=== PATIENT | female | born 1965 | race Caucasian/White ===

== ENCOUNTER 2017-03-16 12:44 | Observation (INO) | payer BC ==
[~2017-03-16] VITALS: Ht 172.7 cm; Wt 60.8 kg
[~2017-03-16 12:44] MED LIST: ATOR40TA59 PO; CHOL20009 PO; CITA20TA5 PO; CYAN10005 PO; CYCL-331 PO; ESTR1TAB15 PO; OLAN5TAB9 PO; OMEP40CA5 PO; PNV1TABL25 PO; ROPI0.5T PO; TRAM50TA PO
--- NOTE | 2017-03-16 13:07 | EKG ---
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
[2017-03-16 13:44] LABS: BASO % 1 % (0-3); EOS # 0.1 x10^3/uL (0.0-0.7); EOS % 2 % (0-3); HEMATOCRIT 38.2 % (36.0-47.0); HEMOGLOBIN 12.9 g/dL (12.0-15.5); LYMPH # 1.4 x10^3/uL (1.0-4.8); LYMPH % 35 % (24-48); MEAN CORPUSCULAR HEMOGLOBIN 32 pg (25-35); MEAN CORPUSCULAR HGB CONC 34 g/dL (31-37); MEAN CORPUSCULAR VOLUME 94 fL (79-100); MONO # 0.2 x10^3/uL (0.0-1.1); MONO % 6 % (0-9); NEUT # 2.1 x10^3uL (1.8-7.7); NEUT % 56 % (31-73); PLATELET COUNT 251 x10^3/uL (140-400); RED BLOOD COUNT 4.08 x10^6/uL (3.50-5.40); RED CELL DISTRIBUTION WIDTH 13.3 % (11.5-14.5); WHITE BLOOD COUNT 3.8 x10^3/uL (4.0-11.0)
--- NOTE | 2017-03-16 13:45 | RAD ---
Portable AP upright view CXR: Clinical indications: Chest pain and shortness of air. Comparison: November 11, 2015. Findings: No acute lung infiltrate or pleural effusion or pulmonary edema or lung mass or pneumothorax is seen. The heart size, pulmonary vasculature, mediastinum and both gris are unremarkable. Impression: No acute radiographic abnormality is seen.
[2017-03-16 14:06] LABS: ALBUMIN 3.4 g/dL (3.4-5.0); CALCIUM 9.1 mg/dL (8.5-10.1); CREATININE 1.2 mg/dL (0.6-1.0); GFR 47.4; MAGNESIUM 1.6 mg/dL (1.8-2.4); TOTAL BILIRUBIN 0.3 mg/dL (0.2-1.0); TOTAL PROTEIN 6.7 g/dL (6.4-8.2)
--- NOTE | 2017-03-16 14:41 | PHYS DOC ---
Past History Past Medical History: Asthma Past Surgical History: Cholecystectomy, Gastric Bypass, Hysterectomy Smoking: Non-smoker Alcohol Use: None Drug Use: None Adult General Chief Complaint Chief Complaint: CHEST PAIN HPI HPI Patient is a 51-year-old female who presents with the complaint of dull left- sided chest pain and "I can't catch my breath" for about 30 minutes prior to arrival. Patient states days ago, on Wednesday, her heart was racing. It went away after a while by itself. At that time she did not really have chest discomfort that she was a bit short of air. She has been having some of these symptoms off and on for 2 months. 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 I believe the dull left-sided chest pain was well was a little different and really prompted her to come in. The patient denies diaphoresis, vomiting, but she is short of air with the symptoms. She has a history of asthma and uses her inhaler. Also has a history of WPW. The patient has been seen by Dr Antonio, cardiology. She has not had a heart catheter. She denies history of CA. She was hospitalized she believes about 9 years ago and then was seen again about 2 years ago for chest pain or heart related complaints, both times she checked out and was not found to have heart related problems. Patient has never smoked. She denies hypertension and diabetes. She does take a statin and believe she has high blood cholesterol. Meds include meloxicam, levothyroxine, she does not take aspirin or antiplatelet therapy. Review of Systems Review of Systems Constitutional: Denies fever or chills [] Eyes: Denies change in visual acuity, redness, or eye pain [] HENT: Denies nasal congestion or sore throat [] Respiratory: As in history of present illness Cardiovascular: As in history of present illness GI: Denies abdominal pain, nausea, vomiting, bloody stools or diarrhea [] : Denies dysuria or hematuria [] Musculoskeletal: Denies back pain or joint pain [] Integument: Denies rash or skin lesions [] Neurologic: Denies headache, focal weakness or sensory changes [] Allergies Allergies Allergies Coded Allergies Type Severity Reaction Last Updated Verified duloxetine Allergy Intermediate 11/11/15 Yes rosuvastatin Allergy Intermediate rash 11/11/15 No pramipexole Allergy Mild NAUSEA AND VOMITING 11/11/15 Yes Physical Exam Physical Exam Constitutional: Well developed, well nourished, no acute distress, non-toxic appearance. Alert, mentating normally, no acute distress, nondiaphoretic. HENT: Normocephalic, atraumatic, bilateral external ears normal, nose normal. [] Eyes: conjunctiva normal, no discharge. [] Neck: Normal range of motion, no stridor. [] Cardiovascular:Heart rate regular rhythm, no murmur [] Lungs & Thorax: Bilateral breath sounds clear to auscultation , no wheezes Abdomen: Bowel sounds normal, soft, no tenderness, no masses, no pulsatile masses. [] Skin: Warm, dry, no erythema, no rash. [] Extremities: No tenderness, no cyanosis, no clubbing, ROM intact, no edema. [] Neurologic: Alert and oriented X 3, normal motor function, normal sensory function, no focal deficits noted. [] Current Patient Data Vital Signs Vital Signs Date Time Temp Pulse Resp B/P (MAP) Pulse Ox O2 Delivery O2 Flow Rate FiO2 03/16/17 13:03 98.7 88 22 99 Lab Results Laboratory Tests Test 03/16/17 13:33 White Blood Count 3.8 x10^3/uL (4.0-11.0) L Red Blood Count 4.08 x10^6/uL (3.50-5.40) Hemoglobin 12.9 g/dL (12.0-15.5) Hematocrit 38.2 % (36.0-47.0) Mean Corpuscular Volume 94 fL (79-100) Mean Corpuscular Hemoglobin 32 pg (25-35) Mean Corpuscular Hemoglobin Concent 34 g/dL (31-37) Red Cell Distribution Width 13.3 % (11.5-14.5) Platelet Count 251 x10^3/uL (140-400) Neutrophils (%) (Auto) 56 % (31-73) Lymphocytes (%) (Auto) 35 % (24-48) Monocytes (%) (Auto) 6 % (0-9) Eosinophils (%) (Auto) 2 % (0-3) Basophils (%) (Auto) 1 % (0-3) Neutrophils # (Auto) 2.1 x10^3uL (1.8-7.7) Lymphocytes # (Auto) 1.4 x10^3/uL (1.0-4.8) Monocytes # (Auto) 0.2 x10^3/uL (0.0-1.1) Eosinophils # (Auto) 0.1 x10^3/uL (0.0-0.7) Basophils # (Auto) 0.0 x10^3/uL (0.0-0.2) Sodium Level 141 mmol/L (136-145) Potassium Level 4.0 mmol/L (3.5-5.1) Chloride Level 105 mmol/L (98-107) Carbon Dioxide Level 30 mmol/L (21-32) Anion Gap 6 (6-14) Blood Urea Nitrogen 20 mg/dL (7-20) Creatinine 1.2 mg/dL (0.6-1.0) H Estimated GFR (Cockcroft-Gault) 47.4 BUN/Creatinine Ratio 17 (6-20) Glucose Level 93 mg/dL (70-99) Calcium Level 9.1 mg/dL (8.5-10.1) Magnesium Level 1.6 mg/dL (1.8-2.4) L Total Bilirubin 0.3 mg/dL (0.2-1.0) Aspartate Amino Transferase (AST) 13 U/L (15-37) L Alanine Aminotransferase (ALT) 16 U/L (14-59) Alkaline Phosphatase 66 U/L (46-116) Creatine Kinase 95 U/L (26-192) Creatine Kinase MB (Mass) 0.6 ng/mL (0.0-3.6) Creatine Kinase MB Relative Index 0.6 % (0-4) Troponin I Quantitative < 0.017 ng/mL (0-0.055) [id number]-Type Natriuretic Peptide 137 pg/mL (0-124) H Total Protein 6.7 g/dL (6.4-8.2) Albumin 3.4 g/dL (3.4-5.0) Albumin/Globulin Ratio 1.0 (1.0-1.7) EKG EKG 12-lead EKG read by me. Sinus rhythm. Heart rate 73. There are no acute ST or T wave changes indicative of ischemia or infarction. No STEMI. [] Radiology/Procedures Radiology/Procedures One view portable chest x-ray read by me. Heart size normal. Lung leonardo are clear. Normal chest x-ray. [] Course & Med Decision Making Course & Med Decision Making Pertinent Labs and Imaging studies reviewed. (See chart for details) 51-year-old female presents with some dull left-sided chest pain and shortness of air, she has had similar symptoms off and on for maybe about 2 months. Patient does have a history of elevated cholesterol as her only cardiac risk factor. Cardiac enzymes and EKG negative in the ED. Evaluation in the ED was unrevealing for other possible causes of her symptoms. She does have a history of asthma but she is not wheezing and I don't believe her asthma is causing her symptoms today. With her history of elevated cholesterol I do believe she needs to be ruled out and may need some further testing such as nuclear stress or nuclear echo. I discussed this with the patient who is agreeable. I discussed the case with Dr. Castillo, who will admit the patient. I wrote bridge orders. [] Dragon Disclaimer Dragon Disclaimer This chart was dictated in whole or in part using Voice Recognition software in a busy, high-work load, and often noisy Emergency Department environment. It may contain unintended and wholly unrecognized errors or omissions. Departure Departure: Impression: Primary Impression: Chest pain of uncertain etiology Disposition: ADMITTED INPATIENT Admitting Physician: Susie Castillo Condition: STABLE Referrals: LISETTE BEARDEN (PCP) TIFFANY VELAZQUEZ MD Mar 16, 2017 14:41
[2017-03-16] MEDS ORDERED: ASPIRIN 81 MG TAB.CHEW PO ONE (15:10)
[2017-03-16 15:48] VITALS: BP 137/89
--- NOTE | 2017-03-16 15:55 | ACF ---
Admission Criteria Forms CARDIOLOGY [facility] Clinical Indications for Admission to Inpatient Care ( Place 'X' for any and all applicable criteria): Hospital admission is needed for appropriate care of the patient because of ANY ONE of the following (1): [ ] I. Hemodynamic instability as indicated by ALL of the following (1)(2)(3) (4)(5) [ ]a) Vital signs or other findings not as expected for chronic patient condition or baseline [ ]b) Instability indicated by ANY ONE of the following: [ ]i) Hypotension [ ]ii) Symptomatic Tachycardia unresponsive to treatment ( e.g., analgesia, fluids, sedation as indicated) [ ]iii) Inadequate perfusion indicated by ANY ONE of the following: [ ] 1) Lactic acidosis (> 2 mmol/L) [ ] 2) New abnormal capillary refill (> 3 seconds) [ ] 3) Reduced urine output [ ] 4) New altered mental status [ ]iv) Orthostatic vital sign changes unresponsive to treatment (e.g., fluids) [ ]v) IV inotropic or vasopressor medication required to maintain adequate blood pressure or perfusion [ ] II. Severe heart failure as indicated by ANY ONE of the following(17)(18) [ ]a) Respiratory distress [ ]b) Hypotension [ ]c) Anasarca (refractory to outpatient therapy) [ ]d) Cardiac arrhythmias of immediate concern [ ]e) Myocardial ischemia [ ] III. Cardiac arrhythmias or findings of immediate concern indicated by ANY ONE of the following (19)(20): [ ] a) Heart rhythms that are inherently dangerous or unstable indicated by ANY ONE of the following (21)(22)(23): [ ] i) Resuscitated ventricular fibrillation or cardiac arrest [ ] ii) Ventricular escape rhythm [ ] iii) Sustained ventricular tachycardia (30 seconds or more of ventricular rhythm at greater than 100 beats per minute) [ ] iv) Nonsustained ventricular tachycardia and ANY ONE of the following: [ ] 1) Suspected cardiac ischemia as cause or consequence of ventricular tachycardia [ ] 2) In setting of acute myocarditis [ ] b) Unstable cardiac conduction defects indicated by ANY ONE of the following(23)(24)(25) [ ] i) Type II second-degree atrioventricular block [ ]ii) Third-degree atrioventricular block [ ]iii) New-onset left bundle branch block with suspected myocardial ischemia [ ]c) Any heart rhythm and ANY ONE of the following (21)(22)(26)(27) (28) [ ] i) Continuous long-term ECG monitoring needed (e.g., initiation of drug requiring monitoring for more than 24 hours) [ ] ii) Patient has automatic implanted cardioverter defibrillator that is repeatedly firing, malfunctioning, or in need of immediate adjustment of settings beyond the scope of ambulatory or observation care [ ]d) Heart rhythms of concern due to ANY ONE of the following: [ ] i) Hypotension [ ] ii) Respiratory distress [ ] iii) Association with other significant symptoms (e.g., bradycardia with syncope or ongoing dizziness, supraventricular tachycardia with chest pain (14)(15)(17) [ ] IV. Monitoring for cardiac contusion beyond the scope of observation care needed [A](30)(31)(32) [ ] V. Surgical or device complication (e.g., valve replacement complication , pacemaker dysfunction) (35)(41)(44)(45)(46) [ ] . Inpatient palliative care needed. [B](49) Also use Inpatient Palliative Care Criteria [ ] VII. Nonbacterial thrombotic (marantic) endocarditis (36)(43)(47)(48) [X ] VIII. Cardiology condition, symptom, or finding for which emergency and observation care has failed or are not considered appropriate. [ ] IX. Acute valvular disease requiring inpatient as indicated by ANY ONE of the following (41) [ ]a) Acute valvular regurgitation (42) [ ]b) Noninfectious valvulitis (43) [ ]c) Obstructive valve thrombosis [ ]d) Paravalvular leak [ ]e) Other significant valvular disorder remaining after emergency or observation level of care (as appropriate) [ ]X. Pericardial disease requiring inpatient treatment as indicated by ANY ONE of the following (33)(34)(35)(36)(37) [ ]a) Suspected tamponade (38)(39)(40) [ ]b) Hemopericardium [ ]c) Other significant pericardial disorder remaining after emergency or observation level of care (as appropriate) [ ] XI. Cardiac ischemia beyond scope of emergency and observation care. [ ] XII. Hypertension requiring inpatient treatment as indicated by ANY ONE of the following (6)(7)(8) [ ]a) SBP greater than 220 mm Hg or DBP greater than 120 mmHg despite treatment [ ]b) SBP greater than 140 mm Hg or DBP greater than 100 mm Hg with evidence of acute end organ damage as indicated by ANY ONE of the following [ ] i) Encephalopathy [ ] ii) Acute renal failure as indicated by new onset of ANY ONE of the following (9)(10)(11)(12)(13) [ ]1) 3-fold rise in serum creatinine from baseline [ ]2) Serum creatinine greater than 4 mg/dL ( 354 micromoles/L) with acute rise greater than 0.5 mg/dL (44.2 micromoles/L) [ ]3) Reduction of more than 75% in estimated glomerular filtration rate from baseline [ ]4) Estimated glomerular filtration rate less than 35 mL/min/1.73m2 (0.59 mL/sec/1.73m2) in child up to 18 years of age [ ]5) Cessation of urine output indicated by ALL of the following [ ]A. Adequate volume status [ ]B. Inadequate urine output as indicated by ANY ONE of the following [ ]a. Urine output less than 0.3 mL/kg/hr for 24 hours [ ]b. Anuria (urine output less than 0.1 mL/kg/hr) for 12 hours [ ] iii) Aortic dissection [ ] iv) Myocardial Ischemia [ ] v) Left ventricular heart failure [ ]vi) Retinal Hemorrhage [ ]vii) Other significant finding [ ]c) Hypertension in child requiring inpatient treatment as indicated by ALL of the following(14)(15)(16) [ ] i) Outpatient treatment not effective, not available, or not appropriate [ ]ii) SBP or DBP greater than 95th percentile for age [ ]iii) Evidence of acute end organ damage as indicated by ANY ONE of the following [ ]1) Altered mental status [ ]2) Acute renal failure as indicated by new onset of ANY ONE of the following(9)(10)(11)(12)(13) [ ]A. 3-fold rise in serum creatinine from baseline [ ]B. Serum creatinine greater than 4 mg/dL (354 micromoles/L) with acute rise greater than 0.5 mg/dL (44.2 micromoles/L) [ ]C. Reduction of more than 75% in estimated glomerular filtration rate from baseline [ ]D. Estimated glomerular filtration rate less than 35 mL/min/1.73m2 (0.59 mL/sec/1.73m2) in child up to 18 years of age [ ]E. Cessation of urine output indicated by ALL of the following [ ]a. Adequate volume status [ ]b. Inadequate urine output as indicated by ANY ONE of the following [ ]i) Urine output less than 0.3 mL/kg/hr for 24 hours [ ]ii) Anuria ( urine output less than 0.1 mL/kg/hr) for 12 hours [ ]3) Severe headache [ ]4) Visual disturbance [ ]5) Retinal hemorrhage [ ]6) Other significant finding [ ]XIII. Complications of transplanted heart indicated by ANY ONE of the following(61): [ ]a) Acute graft rejection requiring inpatient management (eg, intravenous immunosuppression)(62)(63) [ ]b) Acute graft heart failure indicated by ANY ONE of the following(64): [ ]i) Hemodynamic instability [ ]ii) Cardiac arrhythmias of immediate concern [ ]iii) Pulmonary edema that is very severe (eg, mechanical ventilation needed, imminent or likely, need for 100% oxygen to keep oxygen saturation above 90%) [ ]iv) Pulmonary edema that is persistent as indicated by ALL of the following: [ ]1) New need for oxygen therapy to keep oxygen saturation above 90% (or increased FiO2 need from baseline) [ ]2) Has not improved sufficiently with emergency department or observation care IV diuretics or other heart failure treatments[E] [ ]v) Altered mental status that is severe or persistent [ ]vi) Increased creatinine (new on laboratory test) with reduction of more than 50% in estimated glomerular filtration rate from baseline [ ]vii) Progressively (ongoing) rising creatinine (known from past laboratory test) with reduction of more than 25% in estimated glomerular filtration rate from baseline [ ]viii) Acute renal failure [ ]ix) Acute peripheral ischemia (eg, examination shows pulseless, cool, mottled, or cyanotic extremity) [ ]x) Pulmonary artery catheter monitoring needed [ ]xi) Other sign or symptom of heart failure requiring inpatient treatment (ie, too severe or not responsive to outpatient and observation care treatment) [ ]c) Infection requiring inpatient management (eg, Hemodynamic instability, need for intravenous antimicrobial treatment)(66)(67)(68)(69)(70) [ ]d) Cardiac allograft vasculopathy requiring inpatient management ( eg evidence of cardiac ischemia)(71) [ ]e) Other complication of transplanted heart (eg, stroke, severe pulmonary hypertension, severe valvular dysfunction) requiring inpatient management(72) The original [facility] content created by [facility] has been revised. The portions of the content which have been revised are identified through the use of italic text or in bold, and [facility] has neither reviewed nor approved the modified material. All other unmodified content is copyright [facility]. Please see references footnoted in the original [facility] edition 2016 Admission Criteria Met?: Yes FALLON HITCHCOCK Mar 16, 2017 15:55
[2017-03-16] MEDS ORDERED: ACETAMINOPHEN 500 MG TABLET PO PRN (16:00)
[2017-03-16] MEDS ORDERED: LEVO75TA5 PO (16:14)
[2017-03-16] MEDS ORDERED: ATORVASTATIN CA80 MG PO (16:14)
[2017-03-16] MEDS ORDERED: CETI10TA16 PO (16:14)
[2017-03-16] MEDS ORDERED: MELO15TA23 PO (16:14)
[2017-03-16 18:40] VITALS: BP 129/50
[2017-03-16] MEDS ORDERED: CYCLOBENZAPRINE 10 MG TABLET. PO PRN (19:30)
[2017-03-16] MEDS ORDERED: traMADol 50 MG TABLET PO PRN (19:30)
[2017-03-16] MEDS ORDERED: CETIRIZINE HCL 10 MG TABLET PO SCH (21:00)
[2017-03-16] MEDS ORDERED: ATORVASTATIN CALCIUM 20 MG TABLET PO SCH (21:00)
[2017-03-16 22:40] VITALS: BP 117/72
[2017-03-17 02:03] LABS: BASO % 1 % (0-3); EOS # 0.1 x10^3/uL (0.0-0.7); EOS % 2 % (0-3); HEMATOCRIT 34.8 % (36.0-47.0); HEMOGLOBIN 11.8 g/dL (12.0-15.5); LYMPH # 1.8 x10^3/uL (1.0-4.8); LYMPH % 41 % (24-48); MEAN CORPUSCULAR HEMOGLOBIN 32 pg (25-35); MEAN CORPUSCULAR HGB CONC 34 g/dL (31-37); MEAN CORPUSCULAR VOLUME 94 fL (79-100); MONO # 0.3 x10^3/uL (0.0-1.1); MONO % 7 % (0-9); NEUT # 2.2 x10^3uL (1.8-7.7); NEUT % 50 % (31-73); PLATELET COUNT 225 x10^3/uL (140-400); RED BLOOD COUNT 3.68 x10^6/uL (3.50-5.40); RED CELL DISTRIBUTION WIDTH 13.8 % (11.5-14.5); WHITE BLOOD COUNT 4.5 x10^3/uL (4.0-11.0)
[2017-03-17 02:23] LABS: CALCIUM 8.5 mg/dL (8.5-10.1); CREATININE 1.3 mg/dL (0.6-1.0); GFR 43.2; MAGNESIUM 1.7 mg/dL (1.8-2.4); POTASSIUM 3.4 mmol/L (3.5-5.1); TOTAL BILIRUBIN 0.2 mg/dL (0.2-1.0); TOTAL PROTEIN 6.1 g/dL (6.4-8.2)
[2017-03-17 05:45] VITALS: BP 108/65
[2017-03-17] MEDS ORDERED: LEVOTHYROXINE 75 MCG TABLET PO SCH (06:00)
[2017-03-17] MEDS ORDERED: POTASSIUM CHLORIDE 20 MEQ TABLET.ER. PO ONE (08:00)
[2017-03-17] MEDS ORDERED: ASPIRIN ENTERIC COATED 81 MG TABLET.DR. PO SCH (08:00)
[2017-03-17] MEDS ORDERED: PANTOPRAZOLE 40 MG TABLET. PO SCH (09:00)
[2017-03-17] MEDS ORDERED: MAGNESIUM OXIDE 400 MG TABLET PO SCH (09:00)
[2017-03-17 11:13] VITALS: BP 100/62
[2017-03-17 14:34] VITALS: BP 121/69
--- NOTE | 2017-03-17 15:20 | PDOC1 ---
History of Present Illness History of Present Illness This is a 50-year-old female who reported having some troubles breathing and catching her breath and some tightness in her chest this is ongoing for a couple of days. Nonradiating. Denies diaphoresis. Chief Complaint: CHEST PAIN Allergies: Coded Allergies: duloxetine (Verified Allergy, Intermediate, 11/11/15) rosuvastatin (Unverified Allergy, Intermediate, rash, 11/11/15) pramipexole (Verified Allergy, Mild, NAUSEA AND VOMITING, 11/11/15) Past Medical History Cardiac: hyperipidemia, Other (WPW) Pulmonary: Asthma Renal/: Other (PCKD) Past Surgical History: Tonsillectomy, Other Family History: CAD Past Social History Smoke: No Drugs: None Lives: with Family Review of Systems Review Of Systems Fourteen system , review of systems has been reviewed. See HPI for pertinent positives and negative responses, other abdalla all other systems are negative, non pertinent or non contributory Cardiovascular: yes: Chest Pain Neurological: YES: Headaches (since having her teeth pulled) Allergies: Coded Allergies: duloxetine (Verified Allergy, Intermediate, 11/11/15) rosuvastatin (Unverified Allergy, Intermediate, rash, 11/11/15) pramipexole (Verified Allergy, Mild, NAUSEA AND VOMITING, 11/11/15) Medications Current Medications Aspirin (Children'S Aspirin) 324 mg 1X ONCE PO Last administered on 03/16/17 15:10; Start 03/16/17 at 15:10; Stop 03/16/17 at 15:11; Status DC Acetaminophen (Tylenol) 500 mg PRN Q6HRS PRN PO PAIN / TEMP; Start 03/16/17 at 16:00 Aspirin (Aspirin Enteric Coated) 81 mg DAILYWBKFT PO Last administered on 08:17; Start 03/17/17 at 08:00 Cetirizine HCl (ZyrTEC) 10 mg HS PO Last administered on 03/16/17 20:30; Start 03/16/17 at 21:00 Cyclobenzaprine HCl (Flexeril) 10 mg PRN QHS PRN PO MUSCLE SPASMS Last administered on 03/16/17 20:31; Start 03/16/17 at 19:30 Levothyroxine Sodium (Synthroid) 37.5 mcg DAILY06 PO Last administered on 06:09; Start 03/17/17 at 06:00 Tramadol HCl (Ultram) 50 mg PRN Q6HRS PRN PO PAIN; Start 03/16/17 at 19:30 Atorvastatin Calcium (Lipitor) 80 mg QHS PO Last administered on 03/16/17 20: 31; Start 03/16/17 at 21:00 Pantoprazole Sodium (Protonix) 40 mg DAILY PO Last administered on 03/17/17 08 :17; Start 03/17/17 at 09:00 Magnesium Oxide (Magnesium Oxide) 400 mg DAILY PO Last administered on 08:17; Start 03/17/17 at 09:00 Potassium Chloride (Klor-Con) 40 meq 1X ONCE PO Last administered on 08:17; Start 03/17/17 at 08:00; Stop 03/17/17 at 08:01; Status DC Active Scripts Active Reported Cetirizine Hcl 10 Mg Tablet 10 Mg PO HS LAST DOSE GIVEN: DATE: TIME: NEXT DOSE DUE: DATE: TIME: Meloxicam 15 Mg Tablet 15 Mg PO HS LAST DOSE GIVEN: DATE: TIME: NEXT DOSE DUE: DATE: TIME: Levothyroxine Sodium 75 Mcg Tablet 0.5 Tab PO DAILY06 Atorvastatin Calcium 80 Mg Tablet 1 Tab PO HS LAST DOSE GIVEN: DATE: TIME: NEXT DOSE DUE: DATE: TIME: Tramadol Hcl (Tramadol HCl) 50 Mg Tablet 1 Tab PO PRN Q6HRS LAST DOSE GIVEN: DATE: TIME: NEXT DOSE DUE: DATE: TODAY TIME: WHEN NEEDED Cyclobenzaprine Hcl 10 Mg Tablet 1 Tab PO HS PRN LAST DOSE GIVEN: DATE: TIME: NEXT DOSE DUE: DATE: TODAY TIME: WHEN NEEDED Omeprazole 40 Mg Capsule. 1 Cap PO DAILY LAST DOSE GIVEN: DATE: TODAY TIME: AM NEXT DOSE DUE: DATE: TOMORROW TIME: AM Exam Vital Signs Vital Signs Date Time Temp Pulse Resp B/P (MAP) Pulse Ox O2 Delivery O2 Flow Rate FiO2 03/17/17 14:34 97.6 64 20 121/69 (86) 95 03/17/17 12:11 Room Air HEENT: Other (poor dentition, several teeth missing, others decayed, no evidence of infection) Heart: Regular rate Abdominal: Normal bowel sounds, Soft, No tenderness, No masses Extremities: No clubbing, No cyanosis, No edema Skin: No rashes, No breakdown, No significant lesion Neuro: Normal gait, Normal speech, Normal tone, Sensation intact, Reflexes 2+ Psych/Mental Status: Mental status NL, Mood NL Assessment/Plan Assessment/Plan #1 chest painfirst troponin negative admitted for rule out [facility] 2 LVPW appears stable #3 recent teeth extraction For headache from teeth extraction will prescribe Tylenol she needs it 5 polycystic kidney disease with minimally elevated creatinine COURSE reviewed Allergies Coded Allergies Type Severity Reaction Last Updated Verified duloxetine Allergy Intermediate 11/11/15 Yes rosuvastatin Allergy Intermediate rash 11/11/15 No pramipexole Allergy Mild NAUSEA AND VOMITING 11/11/15 Yes Laboratory Tests Test 03/16/17 19:45 03/17/17 01:45 Troponin I Quantitative < 0.017 ng/mL (0-0.055) < 0.017 ng/mL (0-0.055) White Blood Count 4.5 x10^3/uL (4.0-11.0) Red Blood Count 3.68 x10^6/uL (3.50-5.40) Hemoglobin 11.8 g/dL (12.0-15.5) Hematocrit 34.8 % (36.0-47.0) Mean Corpuscular Volume 94 fL (79-100) Mean Corpuscular Hemoglobin 32 pg (25-35) Mean Corpuscular Hemoglobin Concent 34 g/dL (31-37) Red Cell Distribution Width 13.8 % (11.5-14.5) Platelet Count 225 x10^3/uL (140-400) Neutrophils (%) (Auto) 50 % (31-73) Lymphocytes (%) (Auto) 41 % (24-48) Monocytes (%) (Auto) 7 % (0-9) Eosinophils (%) (Auto) 2 % (0-3) Basophils (%) (Auto) 1 % (0-3) Neutrophils # (Auto) 2.2 x10^3uL (1.8-7.7) Lymphocytes # (Auto) 1.8 x10^3/uL (1.0-4.8) Monocytes # (Auto) 0.3 x10^3/uL (0.0-1.1) Eosinophils # (Auto) 0.1 x10^3/uL (0.0-0.7) Basophils # (Auto) 0.0 x10^3/uL (0.0-0.2) Sodium Level 141 mmol/L (136-145) Potassium Level 3.4 mmol/L (3.5-5.1) Chloride Level 104 mmol/L (98-107) Carbon Dioxide Level 30 mmol/L (21-32) Anion Gap 7 (6-14) Blood Urea Nitrogen 23 mg/dL (7-20) Creatinine 1.3 mg/dL (0.6-1.0) Estimated GFR (Cockcroft-Gault) 43.2 BUN/Creatinine Ratio 18 (6-20) Glucose Level 131 mg/dL (70-99) Calcium Level 8.5 mg/dL (8.5-10.1) Magnesium Level 1.7 mg/dL (1.8-2.4) Total Bilirubin 0.2 mg/dL (0.2-1.0) Aspartate Amino Transf (AST/SGOT) 12 U/L (15-37) Alanine Aminotransferase (ALT/SGPT) 15 U/L (14-59) Alkaline Phosphatase 62 U/L (46-116) Total Protein 6.1 g/dL (6.4-8.2) Albumin 3.0 g/dL (3.4-5.0) Albumin/Globulin Ratio 1.0 (1.0-1.7) Current Medications Medications (Trade) Dose Ordered Sig/Hermes Route PRN Reason Start Time Stop Time Status Last Admin Dose Admin Acetaminophen (Tylenol) 500 mg PRN Q6HRS PRN PO PAIN / TEMP 03/16/17 16:00 Aspirin (Aspirin Enteric Coated) 81 mg DAILYWBKFT PO 03/17/17 08:00 03/17/17 08:17 Cetirizine HCl (ZyrTEC) 10 mg HS PO 03/16/17 21:00 03/16/17 20:30 Cyclobenzaprine HCl (Flexeril) 10 mg PRN QHS PRN PO MUSCLE SPASMS 03/16/17 19:30 03/16/17 20:31 Levothyroxine Sodium (Synthroid) 37.5 mcg DAILY06 PO 03/17/17 06:00 03/17/17 06:09 Tramadol HCl (Ultram) 50 mg PRN Q6HRS PRN PO PAIN 03/16/17 19:30 Atorvastatin Calcium (Lipitor) 80 mg QHS PO 03/16/17 21:00 03/16/17 20:31 Pantoprazole Sodium (Protonix) 40 mg DAILY PO 03/17/17 09:00 03/17/17 08:17 Magnesium Oxide (Magnesium Oxide) 400 mg DAILY PO 03/17/17 09:00 03/17/17 08:17 Potassium Chloride (Klor-Con) 40 meq 1X ONCE PO 03/17/17 08:00 03/17/17 08:01 DC 03/17/17 08:17 I & O 03/17/17 00:00 Intake Total 920 ml Balance 920 ml Orders Procedure Category Date Status Time Acetaminophen PHA 03/16/17 In Process (Tylenol) 16:00 Aspirin Enteric PHA 03/17/17 In Process Coated (Aspirin 08:00 Lipid Panel LAB 03/16/17 Complete 15:53 Admit Orders ADT 03/16/17 Transmitted Consult Physician By CONS 03/16/17 Transmitted Name 15:54 Cbc W [employer] LAB 03/17/17 Complete 05:00 Comprehensive LAB 03/17/17 Complete Metabolic Panel 05:00 Magnesium LAB 03/17/17 Complete 05:00 Cetirizine Hcl PHA 03/16/17 In Process (Zyrtec) 21:00 Cyclobenzaprine PHA 03/16/17 In Process (Flexeril) 19:30 Levothyroxine PHA 03/17/17 In Process (Synthroid) 06:00 Tramadol (Ultram) PHA 03/16/17 In Process 19:30 Atorvastatin Calcium PHA 03/16/17 In Process (Lipitor) 21:00 Pantoprazole PHA 03/17/17 In Process (Protonix) 09:00 Magnesium Oxide PHA 03/17/17 In Process (Magnesium Oxide) 09:00 Potassium Chloride PHA 03/17/17 Complete (Klor-Con) 08:00 Echocardiogram ECHO 03/17/17 Logged 15:53 Vital Signs Date Time Temp Pulse Resp B/P (MAP) Pulse Ox O2 Delivery O2 Flow Rate FiO2 03/17/17 14:34 97.6 64 20 121/69 (86) 95 03/17/17 12:11 Room Air VIPUL VENTURA DO Mar 17, 2017 15:20
--- NOTE | 2017-03-17 15:43 | CARD ---
APPROVED REPORT EXAM: Two-dimensional and M-mode echocardiogram with Doppler and color Doppler. Other Information Quality : Average Rhythm : NSR INDICATION Chest Pain 2D DIMENSIONS RVDd2.6 (2.9-3.5cm)Left Atrium(2D)3.1 (1.6-4.0cm) IVSd0.9 (0.7-1.1cm)Aortic Root(2D)2.8 (2.0-3.7cm) LVDd4.3 (3.9-5.9cm)LVOT Diameter2.0 (1.8-2.4cm) PWd0.9 (0.7-1.1cm)LVDs2.8 (2.5-4.0cm) FS (%) 35.4 %SV53.2 ml LVEF(%)65.1 (>50%) Aortic Valve AoV Peak Donnie.123.0cm/sAoV VTI25.0cm AO Peak GR.6.1mmHgLVOT Peak Donnie.93.7cm/s LVOT VTI 19.78cmAO Mean GR.4mmHg ANDRE (VMAX)2.55ka8SLL (VTI)2.41cm2 Mitral Valve MV E Lxeardca08.6cm/sMV DECEL [id number] MV A Tthzljcx16.2cm/sMV FZW55aq E/A Ratio0.8MV A Fuqoxqlw019bk MVA (PHT)3.06cm2 Tricuspid Valve TR P. Tdnkphnu729vh/sRAP NWCJYROJ5wtQy TR Peak Gr.77zzHdWCUH91ngQj Pulmonary Vein S1 Magdsfcl06.2cm/sD2 Qmbdikki47.2cm/s LEFT VENTRICLE The left ventricle is normal size. There is normal left ventricular wall thickness. Left ventricle sy stolic function is normal. The Ejection Fraction is 60-65%. There is normal LV segmental wall motion. The left ventricular diastolic function and filling is normal for age. There is no ventricular septa l defect visualized. RIGHT VENTRICLE The right ventricle is normal size. The right ventricular systolic function is normal. ATRIA The left atrium size is normal. The right atrium size is normal. The interatrial septum is intact wit h no evidence for an atrial septal defect or patent foramen ovale as noted on 2-D or Doppler imaging. AORTIC VALVE The aortic valve is normal in structure and function. The aortic valve is trileaflet. Doppler and Col or Flow revealed no significant aortic regurgitation. There is no significant aortic valvular stenosi s. MITRAL VALVE The mitral valve is normal in structure and function. There is no mitral valve stenosis. Doppler and Color Flow revealed trace to mild mitral regurgitation. TRICUSPID VALVE The tricuspid valve is normal in structure and function. Doppler and Color Flow revealed trace tricus pid regurgitation. The PA pressure was estimated at 26 mmHg. There is no tricuspid valve stenosis. PULMONIC VALVE The pulmonic valve is not well visualized. Doppler and Color Flow revealed no pulmonic valvular regur gitation. There is no pulmonic valvular stenosis. GREAT VESSELS The aortic root is normal in size. The ascending aorta is normal in size. Normal pulmonary venous lesli w (Doppler). The IVC is normal in size and collapses >50% with inspiration. PERICARDIAL EFFUSION There is no evidence of significant pericardial effusion. Critical Notification Critical Value: No <Conclusion> The left ventricle is normal size. Left ventricle systolic function is normal. The Ejection Fraction is 60-65%. There is no significant aortic valvular stenosis. Doppler and Color Flow revealed no significant aortic regurgitation. Doppler and Color Flow revealed trace to mild mitral regurgitation. Doppler and Color Flow revealed trace tricuspid regurgitation. The PA pressure was estimated at 26 mmHg. There is no evidence of significant pericardial effusion.
--- NOTE | 2017-03-17 21:54 | PDOC ---
PROVIDER NOTE PROVIDER NOTE PROVIDER NOTE CARDIOLOGY CONSULTATION NOTE: Reason for consultation: Chest pain HPI: 51 y.o woman previously seen by us in 2016 presenting with chest pain and dyspnea. She states that she has been in her usual state of health and over the last couple days has had intermittent dyspnea. 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 She denies any recent syncope, palpitations, orthopnea or PND. No recent angina. She follows closely with Dr. Antonio. Denies any recent HF symptoms otherwise. She was seen last year for chest pain and had a benign stay. PMHx: WPW without syncope Dyslipidemia Asthma Sochx: No alcohol, tob or illicits. 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 Famhx: No sudden . ALL: Duloxetine, Pramipexole, crestor. ROS: Negative for 07/03 systems reviewed unless otherwise noted above in HPI. Home meds: See NOV. Physical Exam: VSS A/O x 3. NAD CVS: RRR, no m/r/g PULM CTA ABD: soft, EXT: No edema. NEURO: Non focal MSK: NO trauma PSYCH: Normal mood affect. DIAGNOSTIC STUDIES: EKG: normal Echo: normal Hgb/cr/plts normal. LDL and TG elevated. IMPRESSION: 1. Non-cardiac dyspnea 2. Atypical chest pain 3. Dyslipidemia RECS: 1. Normal echo, negative cardiac enzymes 2. No further testing. OK to DC. F/u with Dr. Antonio. Thanks for consult. BRANDEE FERNANDEZ MD Mar 17, 2017 21:54
== END 2017-03-17 17:19 | disposition still patient (30) ==
LOC: ER 12:44 → INTOOBSV 14:50 → 1 SOUTH 14:50
PROVIDERS: ADMIT Family Medicine; ATTEND Family Medicine
DX: R07.89 Other chest pain (principal); J45.909 Unspecified asthma, uncomplicated; E78.5 Hyperlipidemia, unspecified; Q61.3 Polycystic kidney, unspecified; R51 Headache; Z82.49 Family history of ischemic heart disease and other diseases of the circulatory system; Z98.84 Bariatric surgery status
CPT/HCPCS: 36415; 71010; 80053; 80061; 82553; 83735; 83880; 84484; 85027; 93005; 93306; G0378; G0379; 99285-25

== ENCOUNTER 2018-07-04 08:26 | Emergency (ER) | payer BC ==
[~2018-07-04 08:26] MED LIST changes: +ATORVASTATIN CA80 MG PO; +CETI10TA16 PO; -CITA20TA5 PO; +CITA20TA6 PO; +LEVO75TA5 PO; +MELO15TA23 PO
[2018-07-04] MEDS ORDERED: GELATIN SPONGE SIZE 12-7MM SPONGE. ONE (08:46)
--- NOTE | 2018-07-04 09:01 | PHYS DOC ---
Past History Past Medical History: Asthma Past Surgical History: Cholecystectomy, Gastric Bypass, Hysterectomy Smoking: Non-smoker Alcohol Use: None Drug Use: None Adult General Chief Complaint Chief Complaint: bleeding spot HPI HPI Patient is a 52 year old female who presents with pinning of a bleeding spot in right arm. Patient states she has had the morning right arm for a couple months with itching and this morning after scratching her wound bleeding was started and does not stop. The patient denies taking anticoagulation medication or other bleeding problem. Review of Systems Review of Systems Constitutional: Denies fever or chills [] Eyes: Denies change in visual acuity, redness, or eye pain [] HENT: Denies nasal congestion or sore throat [] Respiratory: Denies cough or shortness of breath [] Cardiovascular: No additional information not addressed in HPI [] GI: Denies abdominal pain, nausea, vomiting, bloody stools or diarrhea [] : Denies dysuria or hematuria [] Musculoskeletal: Denies back pain or joint pain [] Integument: Denies rash or skin lesions [] Neurologic: Denies headache, focal weakness or sensory changes [] Endocrine: Denies polyuria or polydipsia [] All other systems were reviewed and found to be within normal limits, except as documented in this note. Current Medications Current Medications Current Medications Medications (Trade) Dose Ordered Sig/Hermes Start Time Stop Time Status Last Admin Dose Admin Gelatin (Gelfoam Size 12-7mm) 1 each STK-MED ONCE 07/04/18 08:46 07/04/18 08:47 DC Allergies Allergies Allergies Coded Allergies Type Severity Reaction Last Updated Verified duloxetine Allergy Intermediate 11/11/15 Yes rosuvastatin Allergy Intermediate rash 11/11/15 No pramipexole Allergy Mild NAUSEA AND VOMITING 11/11/15 Yes Physical Exam Physical Exam Constitutional: Well developed, well nourished, mild distress, non-toxic appearance. [], bilateral external ears normal, oropharynx moist, no oral exudates, nose normal. [] Eyes: PERRLA, EOMI, conjunctiva normal, no discharge. [] Neck: Normal range of motion, no tenderness, supple, no stridor. [] Cardiovascular:Heart rate regular rhythm, no murmur [] Lungs & Thorax: Bilateral breath sounds clear to auscultation [] Skin: Warm, dry, small area of activity bleeding on right arm that does not stop with local pressure Back: No tenderness, no CVA tenderness. [] Extremities: No tenderness, no cyanosis, no clubbing, ROM intact, no edema. [] Neurologic: Alert and oriented X 3, normal motor function, normal sensory function, no focal deficits noted. [] Psychologic: Affect normal, judgement normal, mood normal. [] EKG EKG [] Radiology/Procedures Radiology/Procedures [] Course & Med Decision Making Course & Med Decision Making Evaluation of patient in ER showed 52-year-old female patient who presented with bleeding from the morning of right arm. The bleeding was stopped with applying silver nitrate and dressing with gelatin sponge and Coban was applied and patient instructed to follow-up with a transit planner for evaluation of bleeding mole. Dragon Disclaimer Dragon Disclaimer This electronic medical record was generated, in whole or in part, using a voice recognition dictation system. Departure Departure: Impression: Primary Impression: Bleeding skin mole Disposition: HOME, SELF-CARE (at 0900) Condition: IMPROVED Referrals: CONNIE ALATORRE MD (PCP) Patient Instructions: Mole-Brief Additional Instructions: Follow-up with your primary care physician in 1-2 days for referral to a transit planner Return to ER if not getting better ASMITA FREEMAN MD Jul 04, 2018 09:01
[2018-07-04] MEDS ORDERED: GELATIN SPONGE SIZE 12-7MM SPONGE. TP ONE (09:15)
[2018-07-04 09:32] VITALS: BP 123/70
== END 2018-07-04 09:32 | disposition home or self-care (01) ==
LOC: ER 08:26
DX: D22.61 Melanocytic nevi of right upper limb, including shoulder (principal); R23.3 Spontaneous ecchymoses; J45.909 Unspecified asthma, uncomplicated; Z88.8 Allergy status to other drugs, medicaments and biological substances
CPT/HCPCS: 99283

== ENCOUNTER 2018-07-26 12:13 | Emergency (ER) | payer BC ==
[2018-07-26 12:35] VITALS: BP 104/73
[2018-07-26] MEDS ORDERED: HYDR115S2 PO (13:09)
[2018-07-26] MEDS ORDERED: AZIT250T PO (13:09)
--- NOTE | 2018-07-26 13:09 | PHYS DOC ---
Past History Past Medical History: Asthma Past Surgical History: Cholecystectomy, , Hysterectomy Smoking: Non-smoker Alcohol Use: None Drug Use: None Adult General Chief Complaint Chief Complaint: SORE THROAT HPI HPI Patient is a 53 year old female who presents with angle sore throat for one week. Patient complaining of sore throat and nasal congestion and headache for 1 week that getting worse for the last 2 days. Patient complaining of subjective fever without focal neuro deficit and neck pain. Patient had sick contacts at work. Review of Systems Review of Systems Constitutional: Reports subjective fever Eyes: Denies change in visual acuity, redness, or eye pain [] HENT: Reports nasal congestion and sore throat Respiratory: Reports cough and shortness of breath Cardiovascular: No additional information not addressed in HPI [] GI: Denies abdominal pain, nausea, vomiting, bloody stools or diarrhea [] : Denies dysuria or hematuria [] Musculoskeletal: Denies back pain or joint pain [] Integument: Denies rash or skin lesions [] Neurologic: Denies headache, focal weakness or sensory changes [] Endocrine: Denies polyuria or polydipsia [] All other systems were reviewed and found to be within normal limits, except as documented in this note. Allergies Allergies Allergies Coded Allergies Type Severity Reaction Last Updated Verified duloxetine Allergy Intermediate 11/11/15 Yes rosuvastatin Allergy Intermediate rash 11/11/15 No pramipexole Allergy Mild NAUSEA AND VOMITING 11/11/15 Yes Physical Exam Physical Exam Constitutional: Well developed, well nourished, mild distress, non-toxic appearance. [] HENT: Normocephalic, atraumatic, bilateral external ears normal, pharyngeal erythema, oropharynx moist, no oral exudates, nose normal. [] Eyes: PERRLA, EOMI, conjunctiva normal, no discharge. [] Neck: Normal range of motion, no tenderness, supple, no stridor. [] Cardiovascular:Heart rate regular rhythm, no murmur [] Lungs & Thorax: Bilateral breath sounds clear to auscultation [] Abdomen: Bowel sounds normal, soft, no tenderness, no masses, no pulsatile masses. [] Skin: Warm, dry, no erythema, no rash. [] Back: No tenderness, no CVA tenderness. [] Extremities: No tenderness, no cyanosis, no clubbing, ROM intact, no edema. [] Neurologic: Alert and oriented X 3, normal motor function, normal sensory function, no focal deficits noted. [] Psychologic: Affect normal, judgement normal, mood normal. [] Current Patient Data Vital Signs Vital Signs Date Time Temp Pulse Resp B/P (MAP) Pulse Ox O2 Delivery O2 Flow Rate FiO2 07/26/18 12:35 98.3 104 16 95 Room Air Lab Results Laboratory Tests Test 07/26/18 12:34 Group A Streptococcus Rapid Negative (NEGATIVE) EKG EKG [] Radiology/Procedures Radiology/Procedures [] Course & Med Decision Making Course & Med Decision Making Pertinent Labs reviewed. (See chart for details) discharge: I've spoken with the patient and/or caregivers. I've explained the patient's condition, diagnosis and treatment plan based on information available to me at this time. I've answered the patient's and/or caregivers questions and addressed any concerns. The patient and/or caregivers have a good understanding the patient's diagnosis, condition and treatment plan as can be expected at this point. Vital signs have been stabilized. The patient's condition is stable for discharge from the emergency department. The patient will pursue further outpatient evaluation with her primary care provider or other designated consulting physician as outlined in the discharge instructions. Patient and/or caregivers are agreeable to this plan of care and follow-up instructions have been explained in detail. The patient and/or caregivers have received these instructions in written format and expressed understanding of these discharge instructions. The patient and her caregivers are aware that if any significant change in condition or worsening of symptoms should prompt him to immediately return to this of the closest emergency department. If an emergent department is not readily available I would encourage him to call 911. Christy Disclaimer Dragon Disclaimer This electronic medical record was generated, in whole or in part, using a voice recognition dictation system. Departure Departure: Impression: Primary Impression: Upper respiratory infection Disposition: HOME, SELF-CARE (at 1306) Condition: STABLE Referrals: CONNIE ALATORRE MD (PCP) Patient Instructions: Upper Respiratory Infection, Adult Additional Instructions: Drink plenty of liquids Follow-up with your primary care physician in 3-5 days Return to ER if not getting better Scripts Azithromycin (ZITHROMAX) 250 Mg Tablet 1 PKG PO UD for infection, #1 PKG Prov: ASMITA FREEMAN MD 07/26/18 Hydrocodone/Chlorphen P-Stirex (Tussionex Pennkinetic Susp) 115 Ml Irene.er.12h 5 ML PO BID for cough and congestion, #60 ML Prov: ASMITA FREEMAN MD 07/26/18 ASMITA FREEMAN MD Jul 26, 2018 13:09
== END 2018-07-26 13:14 | disposition home or self-care (01) ==
LOC: ER 12:13
DX: J06.9 Acute upper respiratory infection, unspecified (principal); J45.909 Unspecified asthma, uncomplicated; Z88.8 Allergy status to other drugs, medicaments and biological substances
CPT/HCPCS: 87070; 87880; 99283

== ENCOUNTER 2019-05-22 15:32 | Emergency (ER) | payer BC ==
[~2019-05-22 15:32] MED LIST changes: +AZIT250T PO; +CYAN-25 PO; -CYAN10005 PO; +HYDR115S2 PO
[2019-05-22 15:49] VITALS: BP 110/85
[2019-05-22 15:58] LABS: BASO % 0 % (0-3); EOS # 0.1 x10^3/uL (0.0-0.7); EOS % 1 % (0-3); HEMATOCRIT 41.7 % (36.0-47.0); LYMPH # 0.5 x10^3/uL (1.0-4.8); LYMPH % 8 % (24-48); MEAN CORPUSCULAR HEMOGLOBIN 32 pg (25-35); MEAN CORPUSCULAR HGB CONC 34 g/dL (31-37); MEAN CORPUSCULAR VOLUME 97 fL (79-100); MONO # 0.2 x10^3/uL (0.0-1.1); MONO % 3 % (0-9); NEUT # 5.5 x10^3uL (1.8-7.7); NEUT % 88 % (31-73); PLATELET COUNT 251 x10^3/uL (140-400); RED BLOOD COUNT 4.32 x10^6/uL (3.50-5.40); RED CELL DISTRIBUTION WIDTH 14.1 % (11.5-14.5); WHITE BLOOD COUNT 6.2 x10^3/uL (4.0-11.0)
[2019-05-22] MEDS ORDERED: ASPIRIN 81 MG TAB.CHEW PO ONE (16:10)
--- NOTE | 2019-05-22 16:13 | RAD ---
Single view portable chest HISTORY: Chest pain, cough COMPARISON: 03/16/2017 image without report FINDINGS: The heart size is not enlarged. No evidence of pneumothorax. No pleural effusion. No evidence of infiltrate. Bones appear grossly intact. IMPRESSION: No evidence of consolidating infiltrate Electronically signed by: Vincent Austin MD (05/22/2019 4:10 PM) [facility]
[2019-05-22 16:16] LABS: ALBUMIN 3.6 g/dL (3.4-5.0); ALBUMIN/GLOBULIN RATIO 1.1 (1.0-1.7); CALCIUM 9.1 mg/dL (8.5-10.1); CREATININE 1.6 mg/dL (0.6-1.0); GFR 33.7; TOTAL BILIRUBIN 0.5 mg/dL (0.2-1.0)
[2019-05-22] MEDS ORDERED: IV NORMAL SALINE 1,000ML 1,000 ML IV ONE (16:30)
--- NOTE | 2019-05-22 16:30 | PHYS DOC ---
Past History Past Medical History: Asthma, Other Past Surgical History: Cholecystectomy, Hysterectomy, Tonsillectomy, Tubal ligation, Other Smoking: Non-smoker Alcohol Use: None Drug Use: None Adult General Chief Complaint Chief Complaint: CHEST PAIN HPI HPI 53-year-old female presents with chest pain and shortness of breath. The patient has been having intermittent chest pains for a few weeks. She presents today because she has had a persistent cough for 2 weeks. The cough has been more bothersome last couple of days. She is concerned about it today due to pne umonia. She is also followed a central chest tightness that is mild to moderate in intensity. It is worse with deep breathing. She had a cardiac stress test this was reported to be negative one year ago. She has a history of Hurst Parkinson White. No bypass or stents. Her cough is nonproductive. She denies fever or chills. Review of Systems Review of Systems Constitutional: Denies fever or chills [] Eyes: Denies change in visual acuity, redness, or eye pain [] HENT: Denies nasal congestion or sore throat [] Respiratory: Cough with shortness of breath [] Cardiovascular: No additional information not addressed in HPI [] GI: Denies abdominal pain, nausea, vomiting, bloody stools or diarrhea [] : Denies dysuria or hematuria [] Musculoskeletal: Denies back pain or joint pain [] Integument: Denies rash or skin lesions [] Neurologic: Denies headache, focal weakness or sensory changes [] Endocrine: Denies polyuria or polydipsia [] All other systems were reviewed and found to be within normal limits, except as documented in this note. Current Medications Current Medications Current Medications Medications (Trade) Dose Ordered Sig/[facility] Start Time Stop Time Status Last Admin Dose Admin Aspirin (Children'S Aspirin) 324 mg 1X ONCE 05/22/19 16:10 05/22/19 16:11 DC 05/22/19 16:12 324 MG Allergies Allergies Allergies Coded Allergies Type Severity Reaction Last Updated Verified duloxetine Allergy Intermediate 11/11/15 Yes rosuvastatin Allergy Intermediate rash 11/11/15 No pramipexole Allergy Mild NAUSEA AND VOMITING 11/11/15 Yes Physical Exam Physical Exam Constitutional: Well developed, well nourished, no acute distress, non-toxic appearance. [] HENT: Normocephalic, atraumatic, bilateral external ears normal, oropharynx moist, no oral exudates, nose normal. [] Eyes: PERRLA, EOMI, conjunctiva normal, no discharge. [] Neck: Normal range of motion, no tenderness, supple, no stridor. [] Cardiovascular:Heart rate 110, regular rhythm, no murmur [] Lungs & Thorax: Bilateral breath sounds clear to auscultation [] Abdomen: Bowel sounds normal, soft, no tenderness, no masses, no pulsatile masses. [] Skin: Warm, dry, no erythema, no rash. [] Back: No tenderness, no CVA tenderness. [] Extremities: No tenderness, no cyanosis, no clubbing, ROM intact, no edema. [] Neurologic: Alert and oriented X 3, normal motor function, normal sensory function, no focal deficits noted. [] Psychologic: Affect normal, judgement normal, mood normal. [] Current Patient Data Vital Signs Vital Signs Date Time Temp Pulse Resp B/P (MAP) Pulse Ox O2 Delivery O2 Flow Rate FiO2 05/22/19 15:49 98.7 102 18 96 Room Air Lab Results Laboratory Tests Test 05/22/19 15:45 White Blood Count 6.2 x10^3/uL (4.0-11.0) Red Blood Count 4.32 x10^6/uL (3.50-5.40) Hemoglobin 14.0 g/dL (12.0-15.5) Hematocrit 41.7 % (36.0-47.0) Mean Corpuscular Volume 97 fL (79-100) Mean Corpuscular Hemoglobin 32 pg (25-35) Mean Corpuscular Hemoglobin Concent 34 g/dL (31-37) Red Cell Distribution Width 14.1 % (11.5-14.5) Platelet Count 251 x10^3/uL (140-400) Neutrophils (%) (Auto) 88 % (31-73) H Lymphocytes (%) (Auto) 8 % (24-48) L Monocytes (%) (Auto) 3 % (0-9) Eosinophils (%) (Auto) 1 % (0-3) Basophils (%) (Auto) 0 % (0-3) Neutrophils # (Auto) 5.5 x10^3uL (1.8-7.7) Lymphocytes # (Auto) 0.5 x10^3/uL (1.0-4.8) L Monocytes # (Auto) 0.2 x10^3/uL (0.0-1.1) Eosinophils # (Auto) 0.1 x10^3/uL (0.0-0.7) Basophils # (Auto) 0.0 x10^3/uL (0.0-0.2) Sodium Level 141 mmol/L (136-145) Potassium Level 4.0 mmol/L (3.5-5.1) Chloride Level 104 mmol/L (98-107) Carbon Dioxide Level 26 mmol/L (21-32) Anion Gap 11 (6-14) Blood Urea Nitrogen 33 mg/dL (7-20) H Creatinine 1.6 mg/dL (0.6-1.0) H Estimated GFR (Cockcroft-Gault) 33.7 BUN/Creatinine Ratio 21 (6-20) H Glucose Level 104 mg/dL (70-99) H Calcium Level 9.1 mg/dL (8.5-10.1) Total Bilirubin 0.5 mg/dL (0.2-1.0) Aspartate Amino Transferase (AST) 16 U/L (15-37) Alanine Aminotransferase (ALT) 15 U/L (14-59) Alkaline Phosphatase 70 U/L (46-116) Troponin I Quantitative < 0.017 ng/mL (0-0.055) PD-Ecy-W-Type Natriuretic Peptide 263 pg/mL (0-124) H Total Protein 7.0 g/dL (6.4-8.2) Albumin 3.6 g/dL (3.4-5.0) Albumin/Globulin Ratio 1.1 (1.0-1.7) EKG EKG Sinus rhythm, rate 110, leftward axis, no ST elevations or depressions.[] Radiology/Procedures Radiology/Procedures [] Impressions: Single view portable chest HISTORY: Chest pain, cough COMPARISON: 03/16/2017 image without report FINDINGS: The heart size is not enlarged. No evidence of pneumothorax. No pleural effusion. No evidence of infiltrate. Bones appear grossly intact. IMPRESSION: No evidence of consolidating infiltrate Electronically signed by: Karen Austin MD (05/22/2019 4:10 PM) [facility] DICTATED AND SIGNED BY: KAREN AUSTIN MD DATE: 05/22/19 [id number] CC: JACQUE HAMILTON DO; CONNIE ALATORRE MD ~ Course & Med Decision Making Course & Med Decision Making Pertinent Labs and Imaging studies reviewed. (See chart for details) The patient's labs are unremarkable except for an elevated BUN and creatinine. Her creatinine is 1.6. Her chart shows a baseline of 1.3 a few years ago. Her troponin is negative. Her EKG shows sinus tachycardia. We have given 1 L normal saline. Chest x-rays negative for acute findings. The patient's heart rate is improved to the low 90s. She is reassured by her results. She is stable for discharge at this time. [] Dragon Disclaimer Dragon Disclaimer This electronic medical record was generated, in whole or in part, using a voice recognition dictation system. The HEART Score for CP Pts HEART Score for Chest Pain: HEART Score for Chest Pain Response (Comments) Value History Slighlty/Non-Suspicious 0 ECG Normal 0 Age >45 - < 65 1 Risk Factors 1 or 2 Risk Factors 1 Total 2 Risk Factors: Risk Factors: DM, Current or recent (<one month) smoker, HTN, HLP, family history of CAD, obesity. Risk Scores: Score 0 - 3: 2.5% MACE over next 6 weeks - Discharge Home Score 4 - 6: 20.3% MACE over next 6 weeks - Admit for Clinical Observation Score 7 - 10: 72.7% MACE over next 6 weeks - Early Invasive Strategies Departure Departure: Impression: Primary Impression: Chest pain of uncertain etiology Additional Impression: Cough in adult Disposition: 01 HOME, SELF-CARE Condition: STABLE Referrals: CONNIE ALATORRE MD (PCP) Patient Instructions: Chest Pain (Nonspecific), [id number] Problem Qualifiers JACQUE HAMILTON DO May 22, 2019 16:30
--- NOTE | 2019-05-23 03:23 | EKG ---
[address] [address] Test Date: 2019-05-22 Test Time: 15:41:32 Pat Name: JARRELL WAKEFIELD Department: Room: Gender: F Hole Filler: : 1965 Requested By: JACQUE HAMILTON Order Number: [id number] Reading MD: Measurements Intervals [place] Rate: 110 P: 58 DC: 132 QRS: -22 QRSD: 78 T: 83 QT: 324 QTc: 444 Interpretive Statements SINUS TACHYCARDIA LEFTWARD AXIS QRS(T) CONTOUR ABNORMALITY CONSISTENT WITH INFERIOR INFARCT PROBABLY OLD T ABNORMALITY IN HIGH LATERAL LEADS ABNORMAL ECG RI6.01 No previous ECG available for comparison
== END 2019-05-22 17:32 | disposition home or self-care (01) ==
LOC: ER 15:32
DX: R07.89 Other chest pain (principal); R06.02 Shortness of breath; J45.909 Unspecified asthma, uncomplicated; Z88.8 Allergy status to other drugs, medicaments and biological substances
CPT/HCPCS: 36415; 71045; 80053; 83880; 84484; 85025; 93005; 99285-25; J7030

== ENCOUNTER 2020-04-28 18:29 | Emergency (ER) | payer BC ==
[~2020-04-28] VITALS: Ht 172.7 cm; Wt 59.9 kg
[~2020-04-28 18:29] MED LIST changes: +OMEP40CA45 PO; -OMEP40CA5 PO
--- NOTE | 2020-04-28 18:38 | PHYS DOC ---
Past History Past Medical History: Asthma, Other Past Surgical History: Cholecystectomy, Hysterectomy, Tonsillectomy, Tubal ligation, Other Smoking: Non-smoker Alcohol Use: None Drug Use: None General Adult EDM: Chief Complaint: ABDOMINAL PAIN HPI: HPI: 54 yo F asthma, wpw, hld, chronic GERD with history of Schatzki's ring and hypothyroidism, presents the ED with complaints of intermittent episodes of left lower quadrant pain for the past month. Associated nausea, anorexia and constipation (constipation started after she took Imodium a week ago and had multiple episodes of loose watery diarrhea). Patient states she was seen by her GI physician on 04/22 who is scheduling her for an upcoming upper GI because " I have gerd real bad.," -papers show concern for schatzkis ring and possible need for dilatation. Last colonoscopy was in 2018. Reports last bowel movement was probably a week ago. Past surgical history of cholecystectomy, hiatal hernia repair, gastric bypass, bladder prolapse repair and 2 C-sections. ROS: Denies associated fever, chills, sore throat, cough, chest pain, dyspnea, hemoptysis, unilateral leg swelling, vomiting, melena, hematochezia, hematemesis, back pain, dysuria, hematuria, flank pain. Review of Systems: Review of Systems: Constitutional: Denies fever or chills Eyes: Denies change in visual acuity HENT: Denies nasal congestion or sore throat Respiratory: Denies cough or shortness of breath Cardiovascular: Denies chest pain or edema GI: Denies abdominal pain, nausea, vomiting, bloody stools or diarrhea : Denies dysuria Musculoskeletal: Denies back pain or joint pain Integument: Denies rash Neurologic: Denies headache, focal weakness or sensory changes Endocrine: Denies polyuria or polydipsia Lymphatic: Denies swollen glands Psychiatric: Denies depression or anxiety Allergies: Allergies: Allergies Coded Allergies Type Severity Reaction Last Updated Verified duloxetine Allergy Intermediate 11/11/15 Yes rosuvastatin Allergy Intermediate rash 11/11/15 No pramipexole Allergy Mild NAUSEA AND VOMITING 11/11/15 Yes Physical Exam: PE: Constitutional: Well developed, well nourished, no acute distress, non-toxic appearance. [] HENT: Normocephalic, atraumatic, bilateral external ears normal, oropharynx moist, no oral exudates, nose normal. [] Eyes: EOMI, conjunctiva normal, no discharge. [] Neck: Normal range of motion, no tenderness, supple, no stridor. [] Cardiovascular:Heart rate regular rhythm, no murmur [] Lungs & Thorax: Speaking in full sentences, bilateral equal breath sounds Abdomen: soft, no tenderness, no masses, no pulsatile masses. [] -no signficant pain on exam Skin: Warm, dry, no erythema, no rash. [] Back: No tenderness, no CVA tenderness. [] Extremities: No tenderness, no cyanosis, no clubbing, ROM intact, no edema. [] Neurologic: Alert and oriented X 3, normal motor function, normal sensory function, no focal deficits noted. [] Psychologic: Affect normal, judgement normal, mood normal. [] EKG: EKG: [] Radiology/Procedures: Radiology/Procedures: IMAGING REPORT Signed PATIENT: JARRELL WAKEFIELD IACCOUNT: [id number] : 1965 LOCATION: ER AGE: 54 SEX: F EXAM STATUS: REG ER ORD. PHYSICIAN: LISETTE BARKER DO REASON: llq pain, NO CONTRAST DUE TO CREAT. 2.0 & GFR 26.0 PROCEDURE: CT ABDOMEN PELVIS WO CONTRAST CT Abdomen and Pelvis without contrast History: Left lower quadrant pain Technique: Noncontrast CT imaging was performed of the abdomen and pelvis. Multiplanar images are reviewed. Exposure: One or more of the following individualized dose reduction techniques were utilized for this examination: 1. Automated exposure control 2. Adjustment of the mA and/or kV according to patient size 3. Use of iterative reconstruction technique. Comparison: October 14, 2012 Findings: There is again evidence of polycystic kidney disease with innumerable cystic foci of the bilateral kidneys, also multiple cystic foci of the liver. There is no abnormality of the limited visualized lung bases. There are several bilateral renal calculi, some which are associated with cyst caceres. Superior right renal calculus measures about 0.8 cm. There are multiple phleboliths in the pelvis. There are some other small left retroperitoneal calcifications, at least at which may be in the left ureter although the left ureter poorly defined and not dilated. Largest of these measures about 0.2 cm. There is 3.5 cm likely cyst of the left adnexa. Urinary bladder is distended. Bowel is not dilated. There are some nonspecific air-fluid levels in the small bowel. There is no significant free fluid or free air. There has been cholecystectomy. IMPRESSION: 1. There is again evidence of polycystic kidney disease, also multiple hepatic cysts. There are some small left retroperitoneal calculi, a couple which may be in the left ureter although the left ureter poorly defined and not dilated. There are bilateral renal calculi although some associated with cyst caceres. 2. There is likely cyst of the left adnexa about 3.5 cm. 3. There is distention of urinary bladder. Electronically signed by: Wilfrid Walker MD (04/28/2020 7:59 PM) [facility] DICTATED AND SIGNED BY: WILFRID WALKER MD DATE: 04/28/201958 CC: ZOIE MUÑOZ MD; LISETTE BARKER DO ~ Course & Med Decision Making: Course & Med Decision Making Pertinent Labs and Imaging studies reviewed. (See chart for details) Patient presents to the ED with acute on chronic left lower abdominal pain, in no active distress. UA is unremarkable. Creatinine is elevated at 2, prior was 1.6. CT imaging is concerning for left ureteral lithiasis with no hydronephrosis -ureter not fully visualized. Patient is afebrile, normotensive, no leukocytosis or tachycardia. Suspect pain could be related to renal colic. Will DC home on Flomax and analgesia. Life-threatening processes were considered but low suspicion given patient's history and physical exam. Will also be given outpatient urology follow-up information and encouraged PMD follow-up in the next week (to repeat kidney function). Strict ED return precautions given for severe kamilah or back pain, fever or dehydration. All patient's questions were answered and she was stable at time of discharge. Differential includes aortic dissection, aortic aneurysm, acute coronary syndrome, surgical abdomen (appendicitis, cholecystitis, ischemic bowel, strangulated hernia, etc), bowel obstruction or volvulus, bladder outlet o bstruction, inflammatory bowel disease, peptic ulcer disease, sepsis, diverticular disease, ureterolithiasis, nephrolithiasis, I spoken with the patient and her caregivers. I explained the patient's condition, diagnoses and treatment plan based on the information available to me at this time. I have answered the patient and her caregiver's questions and addressed any concerns. The patient and her caregivers have a good understanding of patient's diagnosis, condition and treatment plan as can be expected at this point. Vital signs have been stable. Patient's condition is stable and appropriate for discharge from the emergency department. Patient will pursue further outpatient evaluation with primary care physician or other designated or consulting physician as outlined in the discharge instructions. The patient and/or caregivers are agreeable to this plan of care and follow-up instructions have been explained in detail. The patient and/or caregivers have received these instructions in written form and have expressed an understanding of the discharge instructions. The patient and/or caregivers are aware that any significant change of condition or worsening of symptoms should prompt immediate return to this or the closest emergency department or call to 911. Christy Disclaimer: Christy Disclaimer: This electronic medical record was generated, in whole or in part, using a voice recognition dictation system. Departure Departure: Impression: Primary Impression: Abdominal pain Additional Impressions: Renal insufficiency Ureterolithiasis Disposition: HOME/RESIDENCE PRIOR TO ADM Condition: STABLE Referrals: ZOIE MUÑOZ MD (PCP) Patient Instructions: Chronic Renal Insufficiency, Kidney Stones Additional Instructions: Dr. Wilfr[facility] [phone] Scripts Hydrocodone Bit/Acetaminophen (NORCO 5-325 TABLET) 1 Each Tablet 1 TAB PO PRN Q6HRS PRN for PAIN for 3 Days, #10 TAB 0 Refills Prov: LISETTE BARKER DO 04/28/20 Tamsulosin Hcl (FLOMAX) 0.4 Mg Cap.er.24h 0.4 MG PO DAILY for kidney stones for 10 Days, #10 CAP.SR Prov: LISETTE BARKER DO 04/28/20 Justification of Admission: Justification of Admission: Justification of Admission Dx: N/A LISETTE BARKER DO Apr 28, 2020 18:38
[2020-04-28 18:40] VITALS: BP 118/76
[2020-04-28] MEDS ORDERED: IOHEXOL 300 MG/ML 75 ML VIAL. IV ONE (19:15)
[2020-04-28 19:23] LABS: BASO % 0 % (0-3); EOS # 0.1 x10^3/uL (0.0-0.7); EOS % 2 % (0-3); HEMATOCRIT 38.9 % (36.0-47.0); LYMPH # 1.7 x10^3/uL (1.0-4.8); LYMPH % 36 % (24-48); MEAN CORPUSCULAR HEMOGLOBIN 33 pg (25-35); MEAN CORPUSCULAR HGB CONC 33 g/dL (31-37); MEAN CORPUSCULAR VOLUME 98 fL (79-100); MONO # 0.3 x10^3/uL (0.0-1.1); MONO % 7 % (0-9); NEUT # 2.6 x10^3uL (1.8-7.7); NEUT % 55 % (31-73); PLATELET COUNT 230 x10^3/uL (140-400); RED BLOOD COUNT 3.97 x10^6/uL (3.50-5.40); RED CELL DISTRIBUTION WIDTH 13.6 % (11.5-14.5); WHITE BLOOD COUNT 4.6 x10^3/uL (4.0-11.0)
[2020-04-28 19:27] LABS: CALCIUM 9.4 mg/dL (8.5-10.1)
[2020-04-28] MEDS ORDERED: CONTRAST GIVEN. MC PRN (19:30)
[2020-04-28 19:34] LABS: ALBUMIN 3.9 g/dL (3.4-5.0); ALBUMIN/GLOBULIN RATIO 1.3 (1.0-1.7); TOTAL BILIRUBIN 0.5 mg/dL (0.2-1.0)
--- NOTE | 2020-04-28 20:02 | RAD ---
CT Abdomen and Pelvis without contrast History: Left lower quadrant pain Technique: Noncontrast CT imaging was performed of the abdomen and pelvis. Multiplanar images are reviewed. Exposure: One or more of the following individualized dose reduction techniques were utilized for this examination: 1. Automated exposure control 2. Adjustment of the mA and/or kV according to patient size 3. Use of iterative reconstruction technique. Comparison: October 14, 2012 Findings: There is again evidence of polycystic kidney disease with innumerable cystic foci of the bilateral kidneys, also multiple cystic foci of the liver. There is no abnormality of the limited visualized lung bases. There are several bilateral renal calculi, some which are associated with cyst caceres. Superior right renal calculus measures about 0.8 cm. There are multiple phleboliths in the pelvis. There are some other small left retroperitoneal calcifications, at least at which may be in the left ureter although the left ureter poorly defined and not dilated. Largest of these measures about 0.2 cm. There is 3.5 cm likely cyst of the left adnexa. Urinary bladder is distended. Bowel is not dilated. There are some nonspecific air-fluid levels in the small bowel. There is no significant free fluid or free air. There has been cholecystectomy. IMPRESSION: 1. There is again evidence of polycystic kidney disease, also multiple hepatic cysts. There are some small left retroperitoneal calculi, a couple which may be in the left ureter although the left ureter poorly defined and not dilated. There are bilateral renal calculi although some associated with cyst caceres. 2. There is likely cyst of the left adnexa about 3.5 cm. 3. There is distention of urinary bladder. Electronically signed by: Klever Ko MD (04/28/2020 7:59 PM) [facility]ITALMichelle
[2020-04-28 20:50] LABS: BILIRUBIN,URINE NEG (NEG); CLARITY,URINE CLEAR; COLOR,URINE YELLOW; GLUCOSE,URINE NEG (NEG); NITRITE,URINE NEG (NEG); RBC,URINE OCC /HPF (0-2); UROBILINOGEN,URINE 0.2 mg/dL (0.2 mg/dL)
[2020-04-28 20:51] LABS: BACTERIA,URINE 0 /HPF (0-FEW); SQUAMOUS EPITHELIAL CELL,UR OCC /LPF; WBC,URINE OCC /HPF (0-4)
[2020-04-28] MEDS ORDERED: HYDR-3165 PO (21:38)
[2020-04-28] MEDS ORDERED: TAMS0.4C97 PO (21:38)
== END 2020-04-28 22:00 | disposition home or self-care (01) ==
LOC: ER 18:29
DX: N20.1 Calculus of ureter (principal); N28.9 Disorder of kidney and ureter, unspecified; J45.909 Unspecified asthma, uncomplicated; Z90.49 Acquired absence of other specified parts of digestive tract; Z90.710 Acquired absence of both cervix and uterus; Z98.51 Tubal ligation status; Z88.8 Allergy status to other drugs, medicaments and biological substances
CPT/HCPCS: 36415; 74176; 80053; 81001; 83690; 84484; 85025; 99284-25

== ENCOUNTER 2021-03-22 22:49 | Emergency (ER) | payer BC ==
[~2021-03-22] VITALS: Ht 172.7 cm; Wt 63.2 kg
[~2021-03-22 22:49] MED LIST changes: +HYDR-3165 PO; -OMEP40CA45 PO; +OMEP40CA7 PO; +TAMS0.4C97 PO
--- NOTE | 2021-03-22 23:04 | PHYS DOC ---
Past History Past Medical History: Arthritis, Asthma, GERD, High Cholesterol, Ovarian Cyst, Other Additional Past Medical Histor: WPW, POLYCYSTIC KIDNEYS, HIATAL HERNIA Past Surgical History: Cholecystectomy, , Hysterectomy, Tonsillectomy, Tubal ligation, Other Additional Past Surgical Histo: GASTRIC BYPASS Smoking: Non-smoker Alcohol Use: None Drug Use: None General Adult HPI: HPI: ".. It feels like I am having a kidney stone again.. here on the Lt side..." Patient is a 55 year old female who presents with above hx and complaints of Lt flank back pain. Patient has history of past kidney stones, polycystic kidney disease and ovarian cyst. Pt. follows with Dr. mandujano at [place] as primary. Patient follows at for polycystic kidney disease. Patient denies any intake of bad food. No history of trauma. No history recent travel. No history of specific ill contacts. Patient pain has been somewhat constant since approximately 1 PM today. Pain is localized and left flank and radiates to left lower. Review of Systems: Review of Systems: Constitutional: Denies fever or chills Eyes: Denies change in visual acuity HENT: Denies nasal congestion or sore throat Respiratory: Denies cough or shortness of breath Cardiovascular: Denies chest pain or edema GI: Denies abdominal pain, nausea, vomiting, bloody stools or diarrhea : Denies dysuria Musculoskeletal: Complains of left flank pain Integument: Denies rash Neurologic: Denies headache, focal weakness or sensory changes Endocrine: Denies polyuria or polydipsia Lymphatic: Denies swollen glands Psychiatric: Denies depression or anxiety Family History: Family History: Polycystic kidney disease with mother Current Medications: Current Meds: See nursing for home meds Allergies: Allergies: Allergies Coded Allergies Type Severity Reaction Last Updated Verified duloxetine Allergy Intermediate 11/11/15 Yes rosuvastatin Allergy Intermediate rash 11/11/15 No meloxicam Allergy Unknown 04/28/20 Yes pramipexole Adverse Reaction Mild NAUSEA AND VOMITING 04/28/20 Yes Physical Exam: PE: Constitutional: In moderate acute distress, non-toxic appearance. [] HENT: Normocephalic, atraumatic, bilateral external ears normal, oropharynx moist, no oral exudates, nose normal. [] Eyes: PERRLA, EOMI, conjunctiva normal, no discharge. [] Neck: Normal range of motion, no tenderness, supple, no stridor. [] Cardiovascular:Heart rate regular rhythm, no murmur [] Lungs & Thorax: Bilateral breath sounds equal apex on auscultation [] Abdomen: Bowel sounds decreased,, soft, left flank tenderness, no masses, no pulsatile masses. Old surgical scars. Rebound to the left flank. Skin: Warm, dry, no erythema, no rash. [] Back: No tenderness, no CVA tenderness. [] Extremities: No tenderness, no cyanosis, no clubbing, ROM intact, no edema. [No cording. No psoas sign. Neurologic: Alert and oriented X 3, normal motor function, normal sensory function, no focal deficits noted. [] Psychologic: Affect anxious, judgement normal, mood normal. [] EKG: EKG: My interpretation EKG shows a sinus rhythm at 87 bpm. There is leftward axis changes. There is findings of nonspecific inferior changes. No findings acute STEMI with contralateral changes. Abnormal EKG. [] Radiology/Procedures: Radiology/Procedures: [][place] [address] IMAGING REPORT Signed PATIENT: JARRELL WAKEFIELD IACCOUNT: [id number] : 1965 LOCATION: ER AGE: 55 SEX: F EXAM STATUS: REG ER ORD. PHYSICIAN: ELISEO AMADO MD REASON: pain Lt. flank - prior hx kidney stone, and polycystic PROCEDURE: CT ABDOMEN PELVIS WO CONTRAST Examination: CT of the abdomen pelvis without contrast HISTORY: History of left flank pain COMPARISON: 04/28/2020 TECHNIQUE: Axial CT images of the abdomen pelvis were performed without contrast. Coronal and sagittal reformats are performed Exposure: One or more of the following individualized dose reduction techniques were utilized for this examination: 1. Automated exposure control 2. Adjustment of the mA and/or kV according to patient size 3. Use of iterative reconstruction technique FINDINGS: Minimal bibasilar atelectasis. No evidence of free air identified in the abdomen. The evaluation of the solid organs is limited due to lack of IV contrast. The evaluation of bowel is limited due to lack of oral contrast. Trace pericardial effusion. Multiple cysts identified in the liver. The stomach is mildly distended. The small bowel is nondilated. Feces and gas noted in the colon. Numerous cystic structures identified throughout the bilateral kidneys likely polycystic kidney disease similar to prior exam. There are multiple tiny calcifications identified in the bilateral kidneys likely nephrolithiasis. Questionable left-sided hydronephrosis. Cystic structure identified in the left adnexa measuring 3.6 cm probably left ovarian cyst or cystic lesion similar to prior exam. No evidence of lytic bony destructive lesion. IMPRESSION: 1. Numerous cystic structures identified throughout the bilateral kidneys likely polycystic kidney disease similar to prior exam. 2. Multiple tiny calcifications identified in the bilateral kidneys likely nephrolithiasis. Questionable left-sided hydronephrosis. 3. Cystic structure identified in the left adnexa measuring 3.6 cm probably left ovarian cyst or cystic lesion similar to prior exam. Electronically signed by: Rob Ruiz MD (03/23/2021 12:25 AM) [id number] DICTATED AND SIGNED BY: ROB RUIZ MD DATE: 03/23/21 0017 CC: ELISEO AMADO MD; CONNIE ALATORRE MD ~MTH0 0 Heart Score: C/O Chest Pain: N/A HEART Score for Chest Pain: HEART Score for Chest Pain Response (Comments) Value History Moderately Suspicious 1 ECG Nonspecific Repolarizatio 1 Age >45 - < 65 1 Risk Factors 1 or 2 Risk Factors 1 Troponin < Normal Limit 0 Total 4 Risk Factors: Risk Factors: DM, Current or recent (<one month) smoker, HTN, HLP, family history of CAD, obesity. Risk Scores: Score 0 - 3: 2.5% MACE over next 6 weeks - Discharge Home Score 4 - 6: 20.3% MACE over next 6 weeks - Admit for Clinical Observation Score 7 - 10: 72.7% MACE over next 6 weeks - Early Invasive Strategies Course & Med Decision Making: Course & Med Decision Making Pertinent Labs and Imaging studies reviewed. (See chart for details) Patient push fluids. Patient take Cipro 500 mg twice a day. May use Zofran 8 mg at 4 times a day for active vomiting. Patient follow-up pending urine culture. Patient follow-up with urology. Patient follow-up with primary care. Patient for marked pain may take Viagra Profen up to 4 times a day. Will start on Flomax 0.4 mg daily. Warned that this may cause hypotension and dizziness. Must use extreme caution. Return if any concerns. Clear fluids next 24 hours. Impression: 1. Left renal colic 2. Hematuria 3. Ovarian cyst left 3.6 centimeters 4. Mild elevation creatinine 1.8 5. Urinary tract infection [] Dragon Disclaimer: Dragon Disclaimer: This electronic medical record was generated, in whole or in part, using a voice recognition dictation system. Departure Departure: Scripts Ondansetron Hcl (ZOFRAN) 4 Mg Tablet 8 MG PO QIDPRN PRN for NAUSEA/VOMITING, #30 TAB Prov: ELISEO AMADO MD 03/23/21 Tamsulosin Hcl (FLOMAX) 0.4 Mg Cap.er.24h 0.4 MG PO DAILY for renal colic for 7 Days, #7 CAP.SR Prov: ELISEO AMADO MD 03/23/21 Ciprofloxacin (CIPRO) 500 Mg/5 Ml Irene.mc.rec 500 MG PO BID for uti for 7 Days, MISC Prov: ELISEO AMADO MD 03/23/21 Hydrocodone/Ibuprofen (HYDROCODONE-IBUPROFEN 7.5-200 ) 1 Each Tablet 1 TAB PO PRN Q6HRS PRN for PAIN, #30 TAB 0 Refills Prov: ELISEO AMADO MD 03/23/21 Dragon Disclaimer This chart was dictated in whole or in part using Voice Recognition software in a busy, high-work load, and often noisy Emergency Department environment. It may contain unintended and wholly unrecognized errors or omissions. Dragon Disclaimer This chart was dictated in whole or in part using Voice Recognition software in a busy, high-work load, and often noisy Emergency Department environment. It may contain unintended and wholly unrecognized errors or omissions. ELISEO AMADO MD Mar 22, 2021 23:04
[2021-03-23] MEDS: IV RINGERS SOLUTION,LACTATED 1,000 ML IV SCH (00:10)
[2021-03-23] MEDS: ONDANSETRON PF 4 MG/2 ML VIAL. IVP ONE (00:11)
[2021-03-23] MEDS: KETOROLAC 30 MG/ML VIAL. IVP ONE (00:12)
[2021-03-23] MEDS: FAMOTIDINE 20 MG/2 ML VIAL IVP ONE (00:13)
--- NOTE | 2021-03-23 00:28 | RAD ---
Examination: CT of the abdomen pelvis without contrast HISTORY: History of left flank pain COMPARISON: 04/28/2020 TECHNIQUE: Axial CT images of the abdomen pelvis were performed without contrast. Coronal and sagitta l reformats are performed Exposure: One or more of the following individualized dose reduction techniques were utilized for thi s examination: 1. Automated exposure control 2. Adjustment of the mA and/or kV according to patient size 3. Use of iterative reconstruction technique FINDINGS: Minimal bibasilar atelectasis. No evidence of free air identified in the abdomen. The evaluation of the solid organs is limited due to lack of IV contrast. The evaluation of bowel is limited due to lack of oral contrast. Trace pericardial effusion. Multiple cysts identified in the liver. The stomach is mildly distended. The small bowel is nondilated. Feces and gas noted in the colon. Numerous cystic structures identifie d throughout the bilateral kidneys likely polycystic kidney disease similar to prior exam. There are multiple tiny calcifications identified in the bilateral kidneys likely nephrolithiasis. Questionable left-sided hydronephrosis. Cystic structure identified in the left adnexa measuring 3.6 cm probably left ovarian cyst or cystic lesion similar to prior exam. No evidence of lytic bony destructive lesio n. IMPRESSION: 1. Numerous cystic structures identified throughout the bilateral kidneys likely polycystic kidney d isease similar to prior exam. 2. Multiple tiny calcifications identified in the bilateral kidneys likely nephrolithiasis. Question able left-sided hydronephrosis. 3. Cystic structure identified in the left adnexa measuring 3.6 cm probably left ovarian cyst or cys tic lesion similar to prior exam. Electronically signed by: Rob Ruiz MD (03/23/2021 12:25 AM) [id number]
[2021-03-23 00:34] LABS: BILIRUBIN,URINE NEG (NEG); CLARITY,URINE HAZY; COLOR,URINE YELLOW; GLUCOSE,URINE NEG (NEG); NITRITE,URINE NEG (NEG); UROBILINOGEN,URINE 0.2 mg/dL (0.2 mg/dL)
[2021-03-23 00:35] LABS: BACTERIA,URINE MOD /HPF (0-FEW); RBC,URINE >40 /HPF (0-2); SQUAMOUS EPITHELIAL CELL,UR OCC /LPF
[2021-03-23 00:36] LABS: CALCIUM 9.2 mg/dL (8.5-10.1); CREATININE 1.8 mg/dL (0.6-1.0); GFR 29.2; POTASSIUM 3.8 mmol/L (3.5-5.1)
[2021-03-23 00:43] LABS: ALBUMIN 4.1 g/dL (3.4-5.0); DIRECT BILIRUBIN 0.1 mg/dL (0.0-0.2); TOTAL BILIRUBIN 0.4 mg/dL (0.2-1.0); TOTAL PROTEIN 7.2 g/dL (6.4-8.2)
[2021-03-23 00:47] LABS: BASO % 0 % (0-3); EOS % 1 % (0-3); HEMATOCRIT 37.9 % (36.0-47.0); HEMOGLOBIN 12.7 g/dL (12.0-15.5); LYMPH # 1.7 x10^3/uL (1.0-4.8); LYMPH % 24 % (24-48); MEAN CORPUSCULAR HEMOGLOBIN 33 pg (25-35); MEAN CORPUSCULAR HGB CONC 34 g/dL (31-37); MEAN CORPUSCULAR VOLUME 97 fL (79-100); MONO # 0.4 x10^3/uL (0.0-1.1); MONO % 6 % (0-9); NEUT # 5.1 x10^3uL (1.8-7.7); NEUT % 70 % (31-73); PLATELET COUNT 263 x10^3/uL (140-400); RED BLOOD COUNT 3.93 x10^6/uL (3.50-5.40); RED CELL DISTRIBUTION WIDTH 13.8 % (11.5-14.5); WHITE BLOOD COUNT 7.3 x10^3/uL (4.0-11.0)
[2021-03-23] MEDS ORDERED: CIPR500S2 PO (01:43)
[2021-03-23] MEDS ORDERED: ONDA4TAB7 PO (01:43)
[2021-03-23] MEDS ORDERED: TAMS0.4C97 PO (01:43)
[2021-03-23] MEDS ORDERED: HYDR-1179 PO (01:43)
[2021-03-23 01:56] VITALS: BP 116/86
[2021-03-23] MEDS: CIPROFLOXACIN HCL 500 MG TABLET PO ONE (01:58)
[2021-03-23] MEDS: TAMSULOSIN 0.4 MG CAP.ER.24H. PO ONE (01:58)
--- NOTE | 2021-03-23 02:36 | RAD ---
EXAM: ABDOMEN 2 VIEWS WITH PA CHEST History: Left flank pain TECHNIQUE: An upright view the chest and upright and supine views of the abdomen COMPARISON: None available. FINDINGS: There is no subdiaphragmatic free air. The lungs are clear. The bowel gas pattern appears u nremarkable. There is no bowel dilatation or evidence of obstruction. IMPRESSION: Unremarkable gas pattern. Electronically signed by: Rob Ruiz MD (03/23/2021 2:34 AM) [id number]
--- NOTE | 2021-03-23 03:51 | EKG ---
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
== END 2021-03-23 02:05 | disposition home or self-care (01) ==
LOC: ER 22:49
DX: N23 Unspecified renal colic (principal); N83.202 Unspecified ovarian cyst, left side; N39.0 Urinary tract infection, site not specified; R31.9 Hematuria, unspecified; J45.909 Unspecified asthma, uncomplicated; K21.9 Gastro-esophageal reflux disease without esophagitis; E78.5 Hyperlipidemia, unspecified; Z90.49 Acquired absence of other specified parts of digestive tract; Z90.710 Acquired absence of both cervix and uterus; Z88.6 Allergy status to analgesic agent; Z88.8 Allergy status to other drugs, medicaments and biological substances; Z98.51 Tubal ligation status
CPT/HCPCS: 36415; 74022; 74176; 80048; 80076; 81001; 82150; 82550; 83690; 84484; 85025; 87086; 93005; 96361; 96374; 96375; 99285; J1885; J2405; J3490; J7120

== ENCOUNTER → 2021-04-15 | Outpatient (CLI) | payer BC ==
[2021-03-23 01:56] VITALS: BP 116/86
[~2021-04-15] MED LIST changes: +CIPR500S2 PO; +HYDR-1179 PO; +OLAN5TAB67 PO; -OLAN5TAB9 PO; +ONDA4TAB7 PO
[2021-04-15 13:40] LABS: ALBUMIN 3.7 g/dL (3.4-5.0); ALBUMIN/GLOBULIN RATIO 1.2 (1.0-1.7); CALCIUM 8.6 mg/dL (8.5-10.1); CREATININE 1.9 mg/dL (0.6-1.0); GFR 27.4; POTASSIUM 4.2 mmol/L (3.5-5.1); TOTAL BILIRUBIN 0.3 mg/dL (0.2-1.0); TOTAL PROTEIN 6.8 g/dL (6.4-8.2); URIC ACID 6.4 mg/dL (2.6-6.0)
== END ==
LOC: LAB 11:52
DX: Q61.2 Polycystic kidney, adult type (principal)
CPT/HCPCS: 36415; 80053; 84550

== ENCOUNTER → 2021-04-25 | Outpatient (CLI) | payer BC ==
--- NOTE | 2021-04-25 13:58 | RAD ---
EXAM: Pelvic sonogram. HISTORY: Pelvic pain. Left ovarian cyst on CT. TECHNIQUE: Transabdominal sonographic imaging of the pelvis was performed. The patient deferred trans vaginal imaging. COMPARISON: CT dated 03/22/2021. FINDINGS: The uterus is surgically absent. The right ovary is obscured due to bowel gas. There is a 3 .7 cm simple left ovarian cyst. There is normal blood flow within the rim of surrounding left ovarian parenchyma. There is no pelvic free fluid. IMPRESSION: 1. 3.7 cm simple appearing left ovarian cyst. This is stable compared to the prior CT. Given the post menopausal status of patient, continued sonographic follow-up is recommended. 2. Surgically absent uterus and obscured right ovary. Electronically signed by: Verna Henderson MD (04/25/2021 1:55 PM) [id number]
== END ==
LOC: US 13:13
PROVIDERS: ATTEND Obstetrics & Gynecology
DX: N83.292 Other ovarian cyst, left side (principal); R10.2 Pelvic and perineal pain; Z90.710 Acquired absence of both cervix and uterus
CPT/HCPCS: 76856

== ENCOUNTER → 2021-06-30 | Outpatient (CLI) | payer BC ==
--- NOTE | 2021-06-30 11:13 | RAD ---
EXAM: Pelvic ultrasound HISTORY: Pelvic pain. COMPARISON: 03/23/2021, 04/28/2020. FINDINGS: Sonographic evaluation of the pelvis was performed transabdominally. The uterus is surgically absent. Limited images of the bladder reveal no abnormality. The right ovary is not visualized and may be surgically absent. The left ovary measures 4.7 x 4.7 x 3 .7 cm. A contains a simple appearing cyst measuring 3.8 x 3.7 x 3.2 cm. This is not clearly changed s megan prior CT. There is no clear solid component There is normal Doppler flow on the left. IMPRESSION: 1. A 3.8 x 3.7 cm simple appearing left ovarian cyst is definitively changed since 04/28/2020 and is likely benign. 2. No cause for pain is identified sonographically. Electronically signed by: Nita Garcia MD (06/30/2021 11:11 AM) [id number]
== END ==
LOC: US 09:43
PROVIDERS: ATTEND Obstetrics & Gynecology
DX: R10.2 Pelvic and perineal pain (principal); Z90.710 Acquired absence of both cervix and uterus
CPT/HCPCS: 76856

== ENCOUNTER → 2021-11-28 | Outpatient (CLI) | payer BC ==
[~2021-11-28] MED LIST changes: -CYCL-331 PO; +CYCL10TA19 PO
[2021-11-28 16:47] LABS: ALBUMIN 3.6 g/dL (3.4-5.0); ALBUMIN/GLOBULIN RATIO 1.1 (1.0-1.7); CALCIUM 8.7 mg/dL (8.5-10.1); CREATININE 1.5 mg/dL (0.6-1.0); GFR 35.9; POTASSIUM 4.2 mmol/L (3.5-5.1); TOTAL BILIRUBIN 0.1 mg/dL (0.2-1.0); TOTAL PROTEIN 6.9 g/dL (6.4-8.2)
[2021-11-28 17:07] LABS: BACTERIA,URINE 0 /HPF (0-FEW); CLARITY,URINE CLEAR; COLOR,URINE YELLOW; GLUCOSE,URINE NEG (NEG); NITRITE,URINE NEG (NEG); RBC,URINE 0 /HPF (0-2); SQUAMOUS EPITHELIAL CELL,UR FEW /LPF; UROBILINOGEN,URINE 0.2 mg/dL (0.2 mg/dL)
== END ==
LOC: LAB 15:47
DX: Q61.2 Polycystic kidney, adult type (principal); D63.1 Anemia in chronic kidney disease; N18.30 Chronic kidney disease, stage 3 unspecified
CPT/HCPCS: 36415; 80053; 81001; 87086

== ENCOUNTER 2022-02-02 13:14 | Emergency (ER) | payer OTHER, BC ==
[~2022-02-02] VITALS: Ht 172.7 cm; Wt 62.8 kg
[2022-02-02 13:30] VITALS: BP 138/83
[2022-02-02] MEDS ORDERED: LIDOCAINE 1%/EPI 1:100,000 20 ML VIAL. IJ ONE (13:45)
--- NOTE | 2022-02-02 15:43 | PHYS DOC ---
Past History Past Medical History: Arthritis, Asthma, GERD, High Cholesterol, Ovarian Cyst, Other Additional Past Medical Histor: WPW, POLYCYSTIC KIDNEYS, HIATAL HERNIA, bronchial asthma (MORALES DESAI APRN) Past Surgical History: Cholecystectomy, , Hysterectomy, Tonsillectomy, Tubal ligation, Other Additional Past Surgical Histo: GASTRIC BYPASS (MORALES DESAI APRN) Smoking: Non-smoker Alcohol Use: None Drug Use: None (MORALES DESAI APRN) General Adult EDM: Chief Complaint: LACERATION/AVULSION HPI: HPI: Patient is a 56-year-old female presents with laceration to right calf. Patient states that she was taking the trash out and cut her calf please of glass that was sticking out of the trash bag. Denying pain. Bleeding is controlled. Immunizations are up-to-date. (MORALES DESAI APRN) Review of Systems: Review of Systems: ROS At least 10 ROS systems have been reviewed and are negative except as documented in the HPI. General: Negative except as outlined in HPI above. Skin: Negative except as outlined in HPI above. HEENT: Negative except as outlined in HPI above. Neck: Negative except as outlined in HPI above. Respiratory: Negative except as outlined in HPI above.. Cardiovascular: Negative except as outlined in HPI above. Abdomen: Negative except as outlined in HPI above. : Negative except as outlined in HPI above. Back/MSK: Negative except as outlined in HPI above. Neuro: Negative except as outlined in HPI above. Psych: Negative except as outlined in HPI above. (MORALES DESAI APRN) Current Medications: Current Meds: Current Medications Medications (Trade) Dose Ordered Sig/Hermes Start Time Stop Time Status Last Admin Dose Admin Lidocaine/ Epinephrine (Xylocaine 1%-Epi 1:100,000) 20 ml 1X ONCE 02/02/22 13:45 02/02/22 13:46 DC (MORALES DESAI APRN) Allergies: Allergies: Allergies Coded Allergies Type Severity Reaction Last Updated Verified duloxetine Allergy Intermediate 11/11/15 Yes rosuvastatin Allergy Intermediate rash 11/11/15 No meloxicam Allergy Unknown 04/28/20 Yes pramipexole Adverse Reaction Mild NAUSEA AND VOMITING 04/28/20 Yes (MORALES DESAI APRN) Physical Exam: PE: Constitutional: Well developed, well nourished, no acute distress, non-toxic appearance. [] HENT: Normocephalic, atraumatic, bilateral external ears normal, oropharynx moist, no oral exudates, nose normal. [] Eyes: PERRLA, EOMI, conjunctiva normal, no discharge. [] Neck: Normal range of motion, no tenderness, supple, no stridor. [] Cardiovascular:Heart rate regular rhythm, no murmur [] Lungs & Thorax: Bilateral breath sounds clear to auscultation [] Abdomen: Bowel sounds normal, soft, no tenderness, no masses, no pulsatile masses. [] Skin: 1 and half centimeter laceration to right calf. Bleeding is controlled. Back: No tenderness, no CVA tenderness. [] Extremities: No tenderness, no cyanosis, no clubbing, ROM intact, no edema. [] Neurologic: Alert and oriented X 3, normal motor function, normal sensory funct ion, no focal deficits noted. [] Psychologic: Affect normal, judgement normal, mood normal. [] (MORALES DESAI APRN) Current Patient Data: Vital Signs: Vital Signs Date Time Temp Pulse Resp B/P (MAP) Pulse Ox O2 Delivery O2 Flow Rate FiO2 02/02/22 13:30 77 18 138/83 (101) 96 (MORALES DESAI APRN) EKG: EKG: [] (MORALES DESAI APRN) Radiology/Procedures: Radiology/Procedures: [] (MORALES DESAI APRN) Heart Score: C/O Chest Pain: No Risk Factors: Risk Factors: DM, Current or recent (<one month) smoker, HTN, HLP, family history of CAD, obesity. Risk Scores: Score 0 - 3: 2.5% MACE over next 6 weeks - Discharge Home Score 4 - 6: 20.3% MACE over next 6 weeks - Admit for Clinical Observation Score 7 - 10: 72.7% MACE over next 6 weeks - Early Invasive Strategies (MORALES DESAI APRN) Course & Med Decision Making: Course & Med Decision Making Pertinent Labs and Imaging studies reviewed. (See chart for details) [] 36-year-old male presents laceration to right calf. Laceration was irrigated, lidocaine placed on the laceration. 5, 30, sutures placed. Patient handled procedure well. Wound was covered with nonadhesive dressing. I discussed signs of infection to watch for. Patient is to follow-up with PCP and have sutures removed in 5 to 7 days or return to the emergency room. (MORALES DESAI APRN) Christy Disclaimer: Christy Disclaimer: This electronic medical record was generated, in whole or in part, using a voice recognition dictation system. (MORALES DESAI APRN) Attending Co-Sign The patient was seen and interviewed as well as examined at the bedside. The chart was reviewed. The case was discussed. Agree with the plan of care. (JACQUE HAMILTON DO) Departure Departure: Impression: Primary Impression: Laceration Disposition: HOME / SELF CARE / HOMELESS Condition: STABLE Referrals: CONNIE ALATORRE MD (PCP) Patient Instructions: Sutured Wound Care, [id number] Additional Instructions: You had sutures placed for a laceration. Please follow-up with your PCP for suture removal in 7 to 10 days. Watch for signs of infection. EMERGENCY DEPARTMENT GENERAL DISCHARGE INSTRUCTIONS Thank you for coming to [facility] (ED) today and trusting us with you care. We trust that you had a positivie experience in our Emergency Department. If you wish to speak to the department management, you may call the director at [phone]. YOUR FOLLOW UP INSTRUCTIONS ARE FOLLOWS: 1. Do you have a private Doctor? If you do not have a private doctor, please ask for a resource list of physicians or clinics that may be able to assist you with follow up care. 2. The Emergency Physician has interpreted your x-rays. The X-Ray specialist will also review them. If there is a change in the findings, you will be notified in 48 hours when at all possible. 3. A lab test or culture has been done, your results will be reviewed and you will be notified if you need a change in treatment. ADDITIONAL INSTRUCTIONS AND INFORMATION: 1. Your care today has been supervised by a physician who is specially trained in emergency care. Many problems require more than one evaluation for a complete diagnosis and treatment. We recommend that you schedule your follow up appointment as recommended to ensure complete treatment of you illness or injury. If you are unable to obtain follow up care and continue to have a problem, or if your condition worsens, we recommend that you return to the ED. 2. We are not able to safely determine your condition over the phone nor are we able to give sound medical advice over the phone. For these safety reasons, if you call for medical advice we will ask you to come to the ED for further evaluation. 3. If you have any questions regarding these discharge instructions please call the ED at [phone]. SAFETY INFORMATION: In the interest of safety, wellness, and injury prevention; we encourage you to wear your sealbelt, if you smoke; quite smoking, and we encourage family to use a protective helmet for bicycling and other sporting events that present an increased risk for head injury. IF YOUR SYMPTOMS WORSEN OR NEW SYMPTOMS DEVELOP, OR YOU HAVE CONCERNS ABOUT YOUR CONDITION; OR IF YOUR CONDITION WORSENS WHILE YOU ARE WAITING FOR YOUR FOLLOW UP APPOINTMENT; EITHER CONTACT YOUR PRIMARY CARE DOCTOR, THE PHYSICIAN WHOSE NAME AND NUMBER YOU WERE GIVEN, OR RETURN TO THE ED IMMEDIATELY. . MORALES DESAI APRN February 02, 2022 15:43 JACQUE HAMILTON DO February 03, 2022 10:19
== END 2022-02-02 15:47 | disposition home or self-care (01) ==
LOC: ER 13:14
DX: S81.811A Laceration without foreign body, right lower leg, initial encounter (principal); M19.90 Unspecified osteoarthritis, unspecified site; Z90.49 Acquired absence of other specified parts of digestive tract; E78.5 Hyperlipidemia, unspecified; Z90.89 Acquired absence of other organs; Z90.710 Acquired absence of both cervix and uterus; Z98.51 Tubal ligation status; W25.XXXA Contact with sharp glass, initial encounter; Y93.89 Activity, other specified; Y92.89 Other specified places as the place of occurrence of the external cause; Y99.8 Other external cause status
CPT/HCPCS: 12002; 99282

== ENCOUNTER 2022-02-13 17:44 | Emergency (ER) | payer OTHER, BC ==
[~2022-02-13] VITALS: Ht 172.7 cm; Wt 62.8 kg
--- NOTE | 2022-02-13 17:56 | PHYS DOC ---
Past History Past Medical History: Arthritis, Asthma, GERD, High Cholesterol, Ovarian Cyst, Other Additional Past Medical Histor: WPW, POLYCYSTIC KIDNEYS, HIATAL HERNIA, bronchial asthma Past Surgical History: Cholecystectomy, , Hysterectomy, Tonsillectomy, Tubal ligation, Other Additional Past Surgical Histo: GASTRIC BYPASS Smoking: Non-smoker Alcohol Use: None Drug Use: None General Adult HPI: HPI: Patient is a 56-year-old female presents with suture removal. Patient denies having any complications or pain. No signs of infection. Review of Systems: Review of Systems: ROS At least 10 ROS systems have been reviewed and are negative except as documented in the HPI. General: Negative except as outlined in HPI above. Skin: Negative except as outlined in HPI above. HEENT: Negative except as outlined in HPI above. Neck: Negative except as outlined in HPI above. Respiratory: Negative except as outlined in HPI above.. Cardiovascular: Negative except as outlined in HPI above. Abdomen: Negative except as outlined in HPI above. : Negative except as outlined in HPI above. Back/MSK: Negative except as outlined in HPI above. Neuro: Negative except as outlined in HPI above. Psych: Negative except as outlined in HPI above. Allergies: Allergies: Allergies Coded Allergies Type Severity Reaction Last Updated Verified duloxetine Allergy Intermediate 11/11/15 Yes rosuvastatin Allergy Intermediate rash 11/11/15 No meloxicam Allergy Unknown 04/28/20 Yes pramipexole Adverse Reaction Mild NAUSEA AND VOMITING 04/28/20 Yes Physical Exam: PE: Constitutional: Well developed, well nourished, no acute distress, non-toxic appearance. [] HENT: Normocephalic, atraumatic, bilateral external ears normal, oropharynx moist, no oral exudates, nose normal. [] Eyes: PERRLA, EOMI, conjunctiva normal, no discharge. [] Neck: Normal range of motion, no tenderness, supple, no stridor. [] Cardiovascular:Heart rate regular rhythm, no murmur [] Lungs & Thorax: Bilateral breath sounds clear to auscultation [] Abdomen: Bowel sounds normal, soft, no tenderness, no masses, no pulsatile masses. [] Skin: Warm, dry, no erythema, no rash. [] Back: No tenderness, no CVA tenderness. [] Extremities: No tenderness, no cyanosis, no clubbing, ROM intact, no edema. [] Neurologic: Alert and oriented X 3, normal motor function, normal sensory function, no focal deficits noted. [] Psychologic: Affect normal, judgement normal, mood normal. [] EKG: EKG: [] Radiology/Procedures: Radiology/Procedures: [] Heart Score: C/O Chest Pain: No Risk Factors: Risk Factors: DM, Current or recent (<one month) smoker, HTN, HLP, family history of CAD, obesity. Risk Scores: Score 0 - 3: 2.5% MACE over next 6 weeks - Discharge Home Score 4 - 6: 20.3% MACE over next 6 weeks - Admit for Clinical Observation Score 7 - 10: 72.7% MACE over next 6 weeks - Early Invasive Strategies Course & Med Decision Making: Course & Med Decision Making Pertinent Labs and Imaging studies reviewed. (See chart for details) [] 56-year-old female presents for suture removal. Patient's sutures were placed 10 days ago. No complications or pain. No signs of infection. Wound healed well. Dragon Disclaimer: [employer] Disclaimer: This electronic medical record was generated, in whole or in part, using a voice recognition dictation system. Departure Departure: Impression: Primary Impression: Visit for suture removal Disposition: HOME / SELF CARE / HOMELESS Condition: STABLE Referrals: CONNIE ALATORRE MD (PCP) Patient Instructions: Suture Removal Additional Instructions: EMERGENCY DEPARTMENT GENERAL DISCHARGE INSTRUCTIONS Thank you for coming to [facility] (ED) today and trusting us with you care. We trust that you had a positivie experience in our Emergency Department. If you wish to speak to the department management, you may call the director at [phone]. YOUR FOLLOW UP INSTRUCTIONS ARE FOLLOWS: 1. Do you have a private Doctor? If you do not have a private doctor, please ask for a resource list of physicians or clinics that may be able to assist you with follow up care. 2. The Emergency Physician has interpreted your x-rays. The X-Ray specialist will also review them. If there is a change in the findings, you will be notified in 48 hours when at all possible. 3. A lab test or culture has been done, your results will be reviewed and you will be notified if you need a change in treatment. ADDITIONAL INSTRUCTIONS AND INFORMATION: 1. Your care today has been supervised by a physician who is specially trained in emergency care. Many problems require more than one evaluation for a complete diagnosis and treatment. We recommend that you schedule your follow up appointment as recommended to ensure complete treatment of you illness or injury. If you are unable to obtain follow up care and continue to have a problem, or if your condition worsens, we recommend that you return to the ED. 2. We are not able to safely determine your condition over the phone nor are we able to give sound medical advice over the phone. For these safety reasons, if you call for medical advice we will ask you to come to the ED for further evaluation. 3. If you have any questions regarding these discharge instructions please call the ED at [phone]. SAFETY INFORMATION: In the interest of safety, wellness, and injury prevention; we encourage you to wear your sealbelt, if you smoke; quite smoking, and we encourage family to use a protective helmet for bicycling and other sporting events that present an increased risk for head injury. IF YOUR SYMPTOMS WORSEN OR NEW SYMPTOMS DEVELOP, OR YOU HAVE CONCERNS ABOUT YOUR CONDITION; OR IF YOUR CONDITION WORSENS WHILE YOU ARE WAITING FOR YOUR FOLLOW UP APPOINTMENT; EITHER CONTACT YOUR PRIMARY CARE DOCTOR, THE PHYSICIAN WHOSE NAME AND NUMBER YOU WERE GIVEN, OR RETURN TO THE ED IMMEDIATELY. MORALES DESAI APRN February 13, 2022 17:56
[2022-02-13 17:57] VITALS: BP 138/83
== END 2022-02-13 18:03 | disposition home or self-care (01) ==
LOC: ER 17:44
DX: S81.811D Laceration without foreign body, right lower leg, subsequent encounter (principal); M19.90 Unspecified osteoarthritis, unspecified site; J45.909 Unspecified asthma, uncomplicated; K21.9 Gastro-esophageal reflux disease without esophagitis; E78.00 Pure hypercholesterolemia, unspecified; Z88.8 Allergy status to other drugs, medicaments and biological substances; Z88.1 Allergy status to other antibiotic agents; X58.XXXD Exposure to other specified factors, subsequent encounter
CPT/HCPCS: 99281; 99282